=== PATIENT | female | born 1940 | race Two or more races ===

== ENCOUNTER 2023-09-23 22:02 | Emergency (ER) | payer OTHER, SELFPAY ==
[2023-09-23 22:27] VITALS: BP 179/64; PULSE 63; RESP 18; TEMP 36.1; O2SAT 98; BMI 23.0
--- NOTE | 2023-09-23 22:34 | CRLHL7_ITS ---
For Patients: As a result of the Century Cures Act, medical imaging exams and procedure reports are released immediately into your electronic medical record. You may view this report before your referring provider. If you have questions, please contact your health care provider. INDICATION: Cervical spine injury from fall TECHNIQUE: CT cervical spine without i.v. contrast. Coronal and sagittal reformats were obtained. COMPARISON: None FINDINGS: Alignment: Straightening of the spine is noted. Bone: No acute fractures or aggressive bone lesions are identified. Disc: There are degenerative disc disease noted at C5-6 and C6-7. Scattered facet osteoarthritis is noted bilaterally. Soft tissue: The prevertebral soft tissues are unremarkable in appearance. The visualized lung apices and mediastinum are unremarkable. Bilateral calcified carotid plaques are noted. IMPRESSION: 1. No acute osseous injuries are identified. Please note that all CT scans at this facility use dose modulation, iterative reconstruction, and/or weight-based dosing when appropriate to reduce radiation dose to as low as reasonably achievable. Dictated by: Dejon Bhatt MD @ 09/23/2023 23:12:55 (Electronically Signed)
--- NOTE | 2023-09-23 22:34 | CRLHL7_ITS ---
For Patients: As a result of the Century Cures Act, medical imaging exams and procedure reports are released immediately into your electronic medical record. You may view this report before your referring provider. If you have questions, please contact your health care provider. INDICATION: Head injury from fall TECHNIQUE: CT Head without i.v. contrast. Coronal and sagittal reformats were obtained. COMPARISON: None FINDINGS: CSF space: Unremarkable for age. Brain: No evidence of mass, acute infarction or hemorrhage is seen. No mass-effect or midline shift is seen. Mild diffuse cortical atrophy is noted. The brain parenchyma is otherwise normal in appearance with preservation of the muñoz-white matter junction. Calvarium: The visualized paranasal sinuses are well aerated. The mastoid air cells are clear. The visualized orbits are grossly unremarkable. The calvarium is unremarkable in appearance with no fractures identified. A small right frontal scalp hematoma is noted. IMPRESSION: 1. No evidence of acute infarction, intracranial hemorrhage, or mass-effect seen. Dictated by Dejon Bhatt MD @ 09/23/2023 11:09:42 PM Please note that all CT scans at this facility use dose modulation, iterative reconstruction, and/or weight-based dosing when appropriate to reduce radiation dose to as low as reasonably achievable. Dictated by: Dejon Bhatt MD @ 09/23/2023 23:09:45 (Electronically Signed)
--- NOTE | 2023-09-23 22:45 | ED.WOUNDLAC ---
HPI - Wound/Laceration General Chief Complaint: Laceration/Wound Stated Complaint: fell, face lac Time Seen by Provider: 09/23/23 22:29 History of Present Illness HPI narrative: Patient is a 83-year-old woman who 1 out for a smoke tonight and stumbled over the sidewalk. Patient fell face 1st striking her forehead and nose. The fall was witnessed. She did not lose consciousness and was able to get up on her own. She has abrasions on her forehead upper lip and nose. She has no lacerations. She has been neurologically intact since the accident but is brought in by her family to make sure that been no damage to her head and neck. She does appear to be up-to-date on her tetanus shot. Patient has no other major complaints such as headache other than in the contused areas as well as irritation from the abrasions. No neck pain no chest pain no shortness of breath or palpitations. Related Data Home Medications Medication Instructions Recorded Confirmed aspirin 81 mg tablet,delayed 81 mg PO DAILY 09/23/23 09/23/23 release glipizide 10 mg tablet 10 mg PO DAILY 09/23/23 09/23/23 lisinopril 2.5 mg tablet 2.5 mg PO DAILY 09/23/23 09/23/23 metformin 500 mg tablet 500 mg PO BID 09/23/23 09/23/23 omeprazole 40 mg capsule,delayed 40 mg PO DAILY 09/23/23 09/23/23 release Allergies Allergy/AdvReac Type Severity Reaction Status Date / Time No Known Drug Allergies Allergy Verified 09/23/23 22:19 Review of Systems Status of ROS: Reports: 10 or more systems reviewed and unremarkable except as noted in History and below [facility] Social History Smoking Status: Current every day smoker How often do you have a drink containing alcohol: never AUDIT-C Alcohol total score: 0 Non-prescribed substance use: denies use Exam Narrative: Exam Narrative: EXAM GENERAL: Patient appears comfortable and well. EYES: No scleral icterus. ENT: Tympanic membranes and oropharynx normal. THYROID: no thyroid nodules or thyromegaly. LYMPH: No supraclavicular or cervical lymphadenopathy. SKIN: Mild abrasions noted on the forehead nose and upper lip. No other significant findings. EXT: No dependent lower extremity pedal edema. HEART: Regular rate and rhythm with no murmurs, rubs, or gallops. LUNGS: Clear to auscultation bilaterally with no crackles or wheezes. ABD: Soft, non tender, non distended. PSYCH: Good eye contact, speech is not pressured. Neurologic cranial nerves 2-12 grossly intact no focal defects. Const: Vital Signs, click to edit/add: Vital Signs - 24 hr 09/23/23 22:27 Temperature 97.0 F L Pulse Rate [Pulse Oximeter] 63 Respiratory Rate 18 Blood Pressure [Ri ght Upper Arm] 179/64 H Pulse Oximetry 98 Oxygen Delivery Me thod Room Air Course Course ED Course: Patient seen examined. The wounds have been cleaned and bacitracin has been applied by family. CT of the head and neck pending. Vital Signs Vital signs: Initial Vital Signs Temperature 97.0 F L 09/23/23 22:27 Temperature Source Temporal Artery Scan 09/23/23 22:27 Pulse Rate 63 09/23/23 22:27 Pulse Rhythm Regular 09/23/23 22:27 Respiratory Rate 18 09/23/23 22:27 Blood Pressure 179/64 H 09/23/23 22:27 Blood Pressure Mean 102 09/23/23 22:27 Blood Pressure Position Sitting 09/23/23 22:27 Pulse Oximetry 98 09/23/23 22:27 Oxygen Delivery Method Room Air 09/23/23 22:27 Vital Signs Temperature 97.0 F L 09/23/23 22:27 Pulse Rate 63 09/23/23 22:27 Respiratory Rate 18 09/23/23 22:27 Blood Pressure 179/64 H 09/23/23 22:27 Pulse Oximetry 98 09/23/23 22:27 Oxygen Delivery Method Room Air 09/23/23 22:27 Temperature 97.0 F L 09/23/23 22:27 Pulse Rate 63 09/23/23 22:27 Respiratory Rate 18 09/23/23 22:27 Blood Pressure 179/64 H 09/23/23 22:27 Pulse Oximetry 98 09/23/23 22:27 Oxygen Delivery Method Room Air 09/23/23 22:27 MDM - Wound/Laceration MDM Narrative Medical decision making narrative: Patient presents after falling at home. She hit her head and has some minor abrasions had been treated. Tetanus shot appears to be up-to-date. CT of the head and neck were both negative for acute findings. Patient has a normal neurologic exam. At this time will continue symptomatic treatment of her abrasions and discharged home with close outpatient follow-up. Differential Diagnosis Differential diagnosis: Likely laceration, abscess, abrasion and avulsion of skin Discharge Plan Discharge Clinical Impression: Abrasion Patient Disposition: Home, Self-Care Condition: Stable Instructions: Abrasion (ED) Additional Instructions: Daily dressing changes Continue current medications Follow-up with your doctor as needed Activity Level: No Restrictions Discharge Diet: Regular Prescriptions: No Action metformin 500 mg tablet 500 mg PO BID glipizide 10 mg tablet 10 mg PO DAILY omeprazole 40 mg capsule,delayed release(DR/EC) 40 mg PO DAILY aspirin 81 mg tablet,delayed release (DR/EC) 81 mg PO DAILY lisinopril 2.5 mg tablet 2.5 mg PO DAILY Stand Alone Forms: [employer] Info Instructions
== END 2023-09-24 00:24 | disposition home or self-care (01) ==
LOC: ED 09-24 00:16
PROVIDERS: Emergency Provider Internal Medicine
DX: S00.31XA Abrasion of nose, initial encounter (principal); S00.511A Abrasion of lip, initial encounter; W01.0XXA Fall on same level from slipping, tripping and stumbling without subsequent striking against object, initial encounter
CPT/HCPCS: 70450; 72125; 99283

== ENCOUNTER 2023-09-29 15:38 | Emergency (ER) | payer OTHER, SELFPAY ==
[2023-09-29] VITALS (12 sets, daily range): BP systolic 138–172; BP diastolic 57–89; PULSE 51–59; RESP 20; TEMP 36.6; O2SAT 93–99
--- NOTE | 2023-09-29 16:16 | CRLHL7_ITS ---
For Patients: As a result of the Century Cures Act, medical imaging exams and procedure reports are released immediately into your electronic medical record. You may view this report before your referring provider. If you have questions, please contact your health care provider. INDICATION: Chest pain. Elevated D-dimer. Recent fall. TECHNIQUE: CT chest with 95 mL Isovue 370 IV contrast. COMPARISON: None. FINDINGS: Heart and vasculature: No cardiomegaly, no pericardial effusion. Within limitations of motion artifact, no filling defects identified within the main, lobar, and contrast opacified portions of the segmental pulmonary arteries. Atherosclerotic coronary artery calcifications. Lungs and pleura: No evidence of pulmonary infarct. Mosaic attenuation of the lung parenchyma, likely secondary to motion artifact. Thyroid and lower neck: No suspicious thyroid nodule. Mediastinum/seble: No lymphadenopathy. Chest wall: No axillary lymphadenopathy. Upper abdomen: No acute abnormality. Multiple right renal cysts noted. Bones: Multilevel degenerative changes of the spine. Bones are osteopenic. No acute displaced rib fracture identified. Age-indeterminate L1 compression fracture, with mild retropulsion. IMPRESSION: 1. No evidence of acute pulmonary embolus within limitations of motion artifact. 2. No evidence of pulmonary infarct. Mosaic attenuation of the lung parenchyma, likely secondary to motion artifact. 3. Age indeterminate L1 compression fracture, with mild retropulsion. Recommend correlation with point tenderness at this level, and with neurologic exam. Please note that all CT scans at this facility use dose modulation, iterative reconstruction, and/or weight-based dosing when appropriate to reduce radiation dose to as low as reasonably achievable. Dictated by Dru Raymond MD @ 09/29/2023 7:37:49 PM (Electronically Signed)
[2023-09-29] MEDS: MORPHINE 4 MG/ML INJ IVP (16:29)
--- NOTE | 2023-09-29 16:29 | ED_ITS ---
HPI - General Adult General Date Seen: 09/29/23 Chief complaint: Fall/Minor Trauma Stated complaint: fell, chest pain, from the clinic Time Seen by Provider: 09/29/23 16:06 Source: patient and family (Family acting as marine welder) Mode of arrival: ambulatory History of Present Illness HPI narrative: Patient is a 83-year-old female presenting to the emergency department for chest pain and elevated D-dimer. She was seen in this ED walk 1 week ago after a fall where she fell down some steps. She is fully evaluated and discharged home. Since then she has been having consistent midsternal chest pain has tender to palpation and worse when he takes a deep breath. States the pain is has only been going on since the fall. She went to go see clinic for her pain and lab work was done showing a markedly elevated D-dimer and she was sent here for possible PE. She denies shortness of breath. Denies any other pain at this point. Main concern is the chest pain. Denies low lightheadedness or dizziness. Denies numbness, weakness, abdominal pain. No other concerns at this time. She did take pain medication home with minimal improvement in her symptoms Related Data Home Medications Medication Instructions Recorded Confirmed aspirin 81 mg tablet,delayed 81 mg PO DAILY 09/23/23 09/29/23 release glipizide 10 mg tablet 10 mg PO DAILY 09/23/23 09/29/23 lisinopril 2.5 mg tablet 2.5 mg PO DAILY 09/23/23 09/29/23 metformin 500 mg tablet 500 mg PO BID 09/23/23 09/29/23 omeprazole 40 mg capsule,delayed 40 mg PO DAILY 09/23/23 09/29/23 release Allergies Allergy/AdvReac Type Severity Reaction Status Date / Time No Known Drug Allergies Allergy Verified 09/29/23 17:56 Review of Systems Status of ROS: Reports: 10 or more systems reviewed and unremarkable except as noted in History and below PFSH PFS Social History Smoking Status: Current every day smoker What tobacco products do you use: cigarettes Do you use any of these nicotine containing products: None Second hand tobacco smoke exposure: No How often do you have a drink containing alcohol: never How often do you have six or more drinks on one occasion: Never AUDIT-C Alcohol total score: 0 Non-prescribed substance use: denies use service: No Exam Narrative: Exam Narrative: Const: Well-nourished, Well-developed, in mild distress Eyes: PERRL, no conjunctival injection, and symmetrical lids HENT: Bruising seen throughout face. Moist mucous membranes. Neck: Symmetric, trachea midline, No thyromegaly. CVS: RRR, No murmurs or gallops. Peripheral pulses 2+ and equal in all extremities RESP: Unlabored respiratory effort. Clear to auscultation bilaterally. GI: Nontender/Nondistended, No rebound or guarding. MSK:Extremities w/o deformity, Normal Active ROM, tenderness to palpation of chest Skin: Warm, Dry. No rashes or lesions. Neuro: Normal Muscle tone, No focal neurological deficits. Psych: Awake, Alert, & Oriented x3. Appropriate mood and affect. Const: Vital Signs, click to edit/add: Vital Signs - 24 hr 09/29/23 15:53 09/29/23 15:56 09/29/23 15:57 Temperature 97.8 F Pulse Rate 53 L 52 L Pulse Rate [Pulse Oximeter] 55 L Respiratory Rate 20 Blood Pressure 152/63 H Blood Pressure [Ri ght Upper Arm] 152/63 H Pulse Oximetry 94 94 95 Oxygen Delivery Me thod Room Air 09/29/23 16:00 09/29/23 16:32 09/29/23 16:33 Temperature Pulse Rate 55 L 53 L 59 L Pulse Rate [Pulse Oximeter] Respiratory Rate Blood Pressure 138/57 L Blood Pressure [Ri ght Upper Arm] Pulse Oximetry 93 97 98 Oxygen Delivery Me thod 09/29/23 17:00 09/29/23 17:02 09/29/23 17:30 Temperature Pulse Rate 51 L 52 L 55 L Pulse Rate [Pulse Oximeter] Respiratory Rate Blood Pressure 156/65 H Blood Pressure [Ri ght Upper Arm] Pulse Oximetry 97 94 96 Oxygen Delivery Me thod 09/29/23 17:32 09/29/23 18:00 09/29/23 18:02 Temperature Pulse Rate 55 L 53 L 57 L Pulse Rate [Pulse Oximeter] Respiratory Rate Blood Pressure 172/75 H 139/89 Blood Pressure [Ri ght Upper Arm] Pulse Oximetry 98 99 94 Oxygen Delivery Me thod Course Vital Signs Vital signs: Initial Vital Signs Temperature 97.8 F 12/07/23 15:53 Temperature Source Temporal Artery Scan 09/29/23 15:53 Pulse Rate 55 L 09/29/23 15:53 Respiratory Rate 20 09/29/23 15:53 Blood Pressure 152/63 H 09/29/23 15:53 Blood Pressure Mean 92 09/29/23 15:53 Blood Pressure Position Semi-Fowlers 09/29/23 15:53 Pulse Oximetry 94 09/29/23 15:53 Oxygen Delivery Method Room Air 09/29/23 15:53 Vital Signs Temperature 97.8 F 09/29/23 15:53 Pulse Rate 55 L 09/29/23 15:53 Respiratory Rate 20 09/29/23 15:53 Blood Pressure 152/63 H 09/29/23 15:53 Pulse Oximetry 94 09/29/23 15:53 Oxygen Delivery Method Room Air 09/29/23 15:53 Temperature 97.8 F 09/29/23 15:53 Pulse Rate 57 L 09/29/23 18:02 Respiratory Rate 20 09/29/23 15:53 Blood Pressure 139/89 09/29/23 18:02 Pulse Oximetry 94 09/29/23 18:02 Oxygen Delivery Method Room Air 09/29/23 15:53 Medications Administered Medications: Discontinued Medications Generic Name Dose Route Start Last Admin Trade Name Cheryl PRN Reason Stop Dose Admin Ketorolac Tromethamine 15 mg 09/29/23 17:56 09/29/23 18:00 Ketorolac 15 Mg/Ml Inj IVP 09/29/23 17:57 15 mg ONCE ONE Administration Morphine Sulfate 4 mg 09/29/23 16:16 09/29/23 16:29 Morphine 4 Mg/Ml Inj IVP 09/29/23 16:17 4 mg ONCE ONE Administration Medical Decision Making [facility] Narrative Medical decision making narrative: Patient is an 83-year-old female presenting emergency department for chest pain and elevated D-dimer. She states that when I palpate her sternal region that reproduces the pain exactly. This makes me think it is most likely a musculoskeletal injury versus a pulmonary embolism but with her elevated D-dimer will order CTA. Cbc was already done at urgent care and is not needed at this time. There is no concerning findings. Point of care troponin was done there so we will do a repeat troponin here I returned showing no concerning abnormalities. BMP ordered to check kidney function prior to CTA. She was given oxycodone for pain is feeling better after this. EKG does show a sinus bradycardia but she is asymptomatic from this at this time and does not need to be worked up further. Patient still having pain after the oxycodone Toradol was given. His symptoms are now greatly improved. CTA of the chest showed an age-indeterminate L1 compression fracture. I spoke to her and her daughter about this and they state that old and patient is not currently having any back pain. No signs of a blood clot. Troponin and BMP showed no concerning abnormalities. Patient is otherwise safe for discharge and I agree with this plan. Will be discharged home with Toradol, oxycodone, Zofran. The Zofran is in case oxycodone causes nausea. Patient has no history of gastric ulcers or stomach issues so I am comfortable giving her the Toradol prescription. This will all be prescribed through [facility]. Lab Data Labs: Lab Results 09/29/23 Range/Units 16:30 Sodium 134 L (135-149) mmol/L Potassium 4.8 (3.6-5.1) mmol/L Chloride 101 (96-114) mmol/L Carbon Dioxide 27 (20-32) mmol/L Anion Gap 6 L (7-15) mEq/L BUN 21 (7-30) mg/dL Creatinine 0.7 (0.5-1.5) mg/dL Estimated GFR 86 ml/min Glucose 283 H (60-115) mg/dL Calcium 9.4 (8.4-10.6) mg/dL Troponin I < 0.01 L (0.01-0.04) ng/mL Imaging Data Chest CTA: Radiologist's impression: 1. No evidence of acute pulmonary embolus within limitations of motion artifact. 2. No evidence of pulmonary infarct. Mosaic attenuation of the lung parenchyma, likely secondary to motion artifact. 3. Age indeterminate L1 compression fracture, with mild retropulsion. Recommend correlation with point tenderness at this level, and with neurologic exam. Please note that all CT scans at this facility use dose modulation, iterative reconstruction, and/or weight-based dosing when appropriate to reduce radiation dose to as low as reasonably achievable. Dictated by Dru Raymond MD @ 09/29/2023 7:37:49 PM ECG Data Attestation: I personally reviewed and interpreted this ECG as follows: Prior ECG tracings: not available for review Interpretation: Sinus bradycardia with a rate of 48 beats per minute, normal intervals, normal axis, no ST or T-wave abnormalities. Discharge Plan Discharge Clinical Impression: Anterior chest wall pain Patient Disposition: Home, Self-Care Condition: Stable Instructions: Chest Wall Pain (ED) Additional Instructions: Take Tylenol and the Toradol for your pain. If his symptoms persist you can use the oxycodone. Of note oxycodone can make you lightheaded and increase your fall risk so be careful when taking this. If needed you can start at a half dose Prescriptions: No Action metformin 500 mg tablet 500 mg PO BID glipizide 10 mg tablet 10 mg PO DAILY omeprazole 40 mg capsule,delayed release(DR/EC) 40 mg PO DAILY aspirin 81 mg tablet,delayed release (DR/EC) 81 mg PO DAILY lisinopril 2.5 mg tablet 2.5 mg PO DAILY Follow Up/Referrals: Provider,Not a Local [Primary Care Provider] - Stand Alone Forms: [email or web address] Info Instructions
[2023-09-29 17:06] LABS: Chloride* 101 mmol/L (96-114)
[2023-09-29 17:07] LABS: Potassium* 4.8 mmol/L (3.6-5.1); Sodium* 134 mmol/L (135-149)
[2023-09-29 17:09] LABS: Creatinine* 0.7 mg/dL (0.5-1.5); Estimated Glomerular Filt Rate 86 ml/min
[2023-09-29 17:10] LABS: Anion Gap 6 mEq/L (7-15); Blood Urea Nitrogen* 21 mg/dL (7-30); Calcium* 9.4 mg/dL (8.4-10.6); Carbon Dioxide* 27 mmol/L (20-32); Glucose* 283 mg/dL (60-115)
[2023-09-29 17:25] LABS: Troponin I* < 0.01 ng/mL (0.01-0.04)
[2023-09-29] MEDS: KETOROLAC 15 MG/ML inj IVP (18:00)
== END 2023-09-29 20:06 | disposition home or self-care (01) ==
PROVIDERS: Emergency Provider Student in an Organized Health Care Education/Training Program
DX: R07.9 Chest pain, unspecified (principal)
CPT/HCPCS: 36415; 71275; 80048; 84484; 93005; 96374; 96375; 99283; 99284; J1885; J2270; Q9967

== ENCOUNTER 2025-03-25 17:59 | Inpatient (IN) | payer OTHER, SELFPAY ==
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
[2025-03-25 18:51] VITALS: BP 130/80; PULSE 86; RESP 14; TEMP 36.7; O2SAT 95; BMI 22.3
--- NOTE | 2025-03-25 19:55 | CRLHL7_ITS ---
For Patients: As a result of the 21st Century Cures Act, medical imaging exams and procedure reports are released immediately into your electronic medical record. You may view this report before your referring provider. If you have questions, please contact your health care provider. INDICATION: sob hx of ovarian cancer. TECHNIQUE: CT chest, abdomen and pelvis acquired 80 cc Isovue 370 IV contrast. COMPARISON: None. FINDINGS: CHEST: Cardiovascular structures: Heart size is normal. Thoracic aorta and main pulmonary artery are normal in caliber. Mediastinum and seble: No lymphadenopathy by size criteria. Lungs and pleura: Small to moderate right and trace left pleural effusions with subjacent basilar consolidations, at least partially reflecting atelectasis. Respiratory motion artifact limits fine detail evaluation of the lung parenchyma. No evidence suspicious pulmonary nodules or infiltrates. Chest wall and axilla: No mass or adenopathy. Bones: No suspicious bone lesions. Unremarkable for age. ABDOMEN AND PELVIS: Multilevel mild motion artifact limiting fine detail evaluation. Liver: Ill-defined subcapsular hypodensity along the anterior aspect of hepatic segment 5 measuring approximately 1.7 cm (). Gallbladder and bile ducts: Unremarkable. Pancreas: Unremarkable. Spleen: Unremarkable. Adrenal glands: Unremarkable. Kidneys: Right renal cysts and other bilateral subcentimeter cortical hypodensities, too small to characterize. No hydroureteronephrosis or evident urolithiasis. GI tract: Small to moderate hiatal hernia with a patulous distal esophagus containing small volume fluid. Bowel is normal in caliber without evidence of obstruction. Vascular structures: Unremarkable for age. Lymph nodes: No evident lymphadenopathy by size criteria. Peritoneum/Retroperitoneum/Abdominal Wall: Extensive peritoneal hyperenhancing nodularity, most pronounced in the right subdiaphragmatic region (for example, 15). There is also enhancing nodularity along the hepatic falciform ligament, also compatible with peritoneal implants. Large volume ascites. No free air. Pelvic Organs: Extensive irregularity of the adnexae with a large left adnexal cystic mass with an anterior wall that is poorly visualized, but measures approximately 9.5 cm (). Thickened endometrium measuring approximate 1.1 cm () Bones and superficial soft tissues: Chronic appearing compression deformity of the L1 vertebral body with approximately 50 percent height loss centrally. No suspicious bone lesions. Unremarkable for age. IMPRESSION: 1. Findings compatible with the reported history of ovarian cancer, including a left adnexal cystic mass that measures approximately 9.5 cm. 2. Extensive peritoneal carcinomatosis with large volume ascites, likely also malignant. 3. Small to moderate right and trace left pleural effusions with subjacent basilar consolidations, at least partially reflecting atelectasis. No definite suspicious pleural nodularity or enhancement to indicate pleural carcinomatosis. 4. Ill-defined subcapsular hypodensity along the anterior aspect of hepatic segment 5 measuring approximately 1.7 cm, nonspecific, though could reflect a metastasis. 5. Small to moderate hiatal hernia with a patulous distal esophagus containing small volume fluid, placing the patient at risk for aspiration. Please note that all CT scans at this facility use dose modulation, iterative reconstruction, and/or weight-based dosing when appropriate to reduce radiation dose to as low as reasonably achievable. Dictated by Minesh Gutierrez MD @ 03/25/2025 10:30:00 PM (Electronically Signed)
--- NOTE | 2025-03-25 19:59 | CRLHL7_ITS ---
For Patients: As a result of the Century Cures Act, medical imaging exams and procedure reports are released immediately into your electronic medical record. You may view this report before your referring provider. If you have questions, please contact your health care provider. INDICATION: Right lower extremity swelling. TECHNIQUE: Right lower extremity Doppler venous ultrasound examination was performed. Grayscale and color Doppler images were obtained. Spectral analysis was performed. COMPARISON: None. FINDINGS: RIGHT LOWER EXTREMITY: Common femoral vein: Fully compressible. No deep vein thrombus. Normal flow and response to augmentation on color Doppler imaging. Superficial femoral vein: Fully compressible. No deep vein thrombus. Normal flow on color Doppler imaging. Deep femoral vein: No deep vein thrombus Popliteal vein: Fully compressible. No deep vein thrombus. Normal flow on color Doppler imaging. Lower calf: The visualized posterior tibial and peroneal veins are fully compressible. No deep vein thrombus. Normal flow and response to augmentation on color Doppler imaging. Superficial veins: The superficial veins, including the greater saphenous vein, remain patent and are fully compressible. Soft tissues: No popliteal fossa fluid collection identified. LEFT LOWER EXTREMITY: Common femoral vein: Fully compressible. No deep vein thrombus. Normal flow and response to augmentation on color Doppler imaging. IMPRESSION: No deep vein thrombus within the right lower extremity Dictated by Paulino Clalahan MD @ 03/25/2025 9:47:27 PM (Electronically Signed)
--- NOTE | 2025-03-25 20:31 | ED.GENADULT ---
HPI - General Adult General Chief complaint: Nausea/Vomiting Stated complaint: Pain and not keeping down fluids, swollen R foot. Time Seen by Provider: 03/25/25 19:00 Source: family History of Present Illness HPI narrative: 85-year-old female coming in today with her family concerned about vomiting. Patient was diagnosed with ovarian cancer with carcinomatosis in January while she was in [place], has had no follow-up since. In the last week she has been vomiting daily. She was seen in the emergency department in [place] this last Tuesday was given IV fluids per her family and sent home to have outpatient follow-up, again this was not done. She was hospitalized the last week of February while in [place] within she had an abdominal CT done showing significant ascites. Paracentesis was done at that time. A repeat paracentesis was recommended prior to discharge and this was not done. In the last 2 days vomiting has returned. Patient complained of abdominal pain. She flew home yesterday with her family who wanted her to have her care here instead of [place]. She states that every now and then she has chest pressure. She was supposed to have cardiology follow-up and this was never established either. Patient has been vomiting up all her medications for the last week. She did have a dose of insulin last night. Family has been checking her sugars regularly. Related Data Home Medications ?Medication ?Instructions ?Recorded ?Confirmed aspirin 81 mg tablet,delayed 81 mg PO DAILY 09/23/23 03/25/25 release glipizide 10 mg tablet 10 mg PO DAILY 09/23/23 03/25/25 lisinopril 2.5 mg tablet 2.5 mg PO DAILY 09/23/23 03/25/25 Held on 03/25/25. Instructions: on hold metformin 500 mg tablet 1,000 mg PO BID 09/23/23 03/25/25 omeprazole 40 mg capsule,delayed 40 mg PO DAILY 09/23/23 09/29/23 release hydrochlorothiazide 25 mg tablet 25 mg PO DAILY 03/25/25 03/25/25 losartan 25 mg tablet (Cozaar) 25 mg PO DAILY 03/25/25 03/25/25 metoprolol succinate 25 mg 25 mg PO DAILY 03/25/25 03/25/25 tablet,extended release 24 hr nifedipine 30 mg tablet,extended 30 mg PO DAILY 03/25/25 03/25/25 release pantoprazole 40 mg tablet,delayed 40 mg PO DAILY 03/25/25 03/25/25 release promethazine 25 mg tablet 25 mg PO Q12H PRN 03/25/25 03/25/25 Previous Rx's ?Medication ?Instructions ?Recorded ketorolac 10 mg tablet 10 mg PO TID PRN pain 5 days #15 09/29/23 tabs ondansetron 4 mg disintegrating 4 mg PO Q6H #20 tabs 09/29/23 tablet oxycodone 5 mg tablet 5 mg PO Q6H PRN pain #12 tabs 09/29/23 Allergies Allergy/AdvReac Type Severity Reaction Status Date / Time No Known Drug Allergies Allergy Verified 03/25/25 18:42 Review of Systems Status of ROS: Reports: 10 or more systems reviewed and unremarkable except as noted in History and below [facility] Medical History (Updated 03/25/25 @ 23:22 by Lyssa Palm MD) Diabetic neuropathy ?E11.40 - Type 2 diabetes mellitus with diabetic neuropathy, unspecified (ICD-10) Hyperlipidemia ?E78.5 - Hyperlipidemia, unspecified (ICD-10) Chronic back pain ?M54.9 - Dorsalgia, unspecified (ICD-10) ?G89.29 - Other chronic pain (ICD-10) Poorly controlled type 2 diabetes mellitus ?E11.65 - Type 2 diabetes mellitus with hyperglycemia (ICD-10) Surgical History (Updated 03/25/25 @ 22:50 by Divya Rodriguez MD) History of lumbar fusion ?Z98.1 - Arthrodesis status (ICD-10) History of partial hysterectomy ?Z90.711 - Acquired absence of uterus with remaining cervical stump (ICD-10) Social History Smoking Status: Current every day smoker What tobacco products do you use: cigarettes Do you use any of these nicotine containing products: None Second hand tobacco smoke exposure: No How often do you have a drink containing alcohol: never How often do you have six or more drinks on one occasion: Never AUDIT-C Alcohol total score: 0 Non-prescribed substance use: denies use service: No Exam Narrative: Exam Narrative: Thin, frail elderly patient in no acute distress, lying quietly in bed with her eyes closed. She follows all commands in [place] from her family. Patient breathing without difficulty. HEENT: Normocephalic atraumatic. Neck is soft. Cardiovascular: Heart is regular rate and rhythm S1 and S2 are present without any murmurs. Lungs: End-expiratory crackles bilaterally. Abdomen: Firm and significantly distended with normoactive bowel sounds. Extremities: Right lower extremity shows 1+ pitting edema, left lower extremity appears normal. Skin: Well perfused without any obvious rashes. Const: Vital Signs, click to edit/add: Vital Signs - 24 hr 03/25/25 18:51 Temperature 98.1 F Pulse Rate [Pulse Oximeter] 86 Respiratory Rate 14 Blood Pressure [Ri t Upper Arm] 130/80 Pulse Oximetry 95 Oxygen Delivery Me thod Room Air Course Course ED Course: IV established and patient given 500 mL of normal saline and IV Zofran. EKG, read by me, shows normal sinus rhythm, pulse 76. Blood work is drawn: WBC is elevated at 12.9, hemoglobin low at 10.1, hematocrit 30.8. Platelet count 595. INR is 1. Sodium is low at 131. Chemistries are otherwise unremarkable. Lactate is normal at 1.3. Normal magnesium. Normal LFTs. Normal troponin. CRP mildly elevated at 4.2. BNP 205. Total protein and albumin within normal range. Normal procalcitonin. Right lower extremity ultrasound does not show any DVT. Chest CT shows a small to moderate right and trace left pleural effusions with subjacent basilar consolidations. Abdomen pelvis CT shows no evidence of obstruction. Does show extensive peritoneal hyper enhancing nodularity compatible with peritoneal implants him large volume ascites. Patient has a large left adnexal cystic mass. Findings are compatible with ovarian cancer, peritoneal carcinomatosis with large volume ascites. Patient also has a small volume flu the distal esophagus. Patient will likely need paracentesis. Discussed patient with Dr. Rodriguez who is accepting the patient for admission further management at this time. Vital Signs Vital signs: Initial Vital Signs Temperature 98.1 F 03/25/25 18:51 Temperature Source Temporal Artery Scan 03/25/25 18:51 Pulse Rate 86 03/25/25 18:51 Pulse Rhythm Regular 03/25/25 18:51 Respiratory Rate 14 03/25/25 18:51 Blood Pressure 130/80 03/25/25 18:51 Blood Pressure Mean 96 03/25/25 18:51 Blood Pressure Position Sitting 03/25/25 18:51 Pulse Oximetry 95 03/25/25 18:51 Oxygen Delivery Method Room Air 03/25/25 18:51 Vital Signs Temperature 98.1 F 03/25/25 18:51 Pulse Rate 86 03/25/25 18:51 Respiratory Rate 14 03/25/25 18:51 Blood Pressure 130/80 03/25/25 18:51 Pulse Oximetry 95 03/25/25 18:51 Oxygen Delivery Method Room Air 03/25/25 18:51 Temperature 98.1 F 03/25/25 18:51 Pulse Rate 86 03/25/25 18:51 Respiratory Rate 14 03/25/25 18:51 Blood Pressure 130/80 03/25/25 18:51 Pulse Oximetry 95 03/25/25 18:51 Oxygen Delivery Method Room Air 03/25/25 18:51 Medications Administered Medications: Discontinued Medications Generic Name Dose Route Start Last Admin Trade Name Freq PRN Reason Stop Dose Admin Sodium Chloride 500 mls @ 500 mls/hr 03/25/25 19:58 03/25/25 21:25 0.9 % Sodium Chloride 500 Ml IV 03/25/25 20:57 Infused .Q1H ONE Infusion Ondansetron HCl 4 mg 03/25/25 19:58 03/25/25 20:50 Ondansetron 2 Mg/Ml Inj IVP 03/25/25 19:59 4 mg ONCE ONE Administration Medical Decision Making MDM Narrative Medical decision making narrative: 85-year-old female with metastatic ovarian cancer and malignant ascites, hyponatremia. Vomiting for the last week. Patient will be admitted for further management. Lab Data Lab results reviewed: Yes I reviewed the patient's lab results Labs: Lab Results 03/25/25 Range/Units 20:48 WBC 12.93 H (4.50-11.00) K/uL RBC 3.73 L (4.00-5.20) m/uL Hgb 10.1 L (12.0-16.0) gm/dL Hct 30.8 L (33.0-51.0) % MCV 83 (80-100) fL MCH 27 (26-34) pg MCHC 33 (32-36) gm/dL RDW Coeff of Brenda 14.0 (11.5-15.5) % Plt Count 595 H (140-440) K/uL Neut % (Auto) 75.4 H (42.0-72.0) % Lymph % (Auto) 16.9 L (20-44) % Crisp % (Auto) 6.0 (0.0-11.0) % Eos % (Auto) 1.2 (0.0-7.0) % Baso % (Auto) 0.2 (0.0-3.0) % Neut # (Auto) 9.70 H (1.7-7.0) K/uL Lymph # (Auto) 2.20 (0.90-2.90) K/uL Crisp # (Auto) 0.80 (0.00-0.90) K/UL Eos # (Auto) 0.20 (0.00-0.50) K/uL Baso # (Auto) 0.00 (0.00-0.30) K/uL Abs Immat Gran (auto) 0.00 (0.00-0.30) K/uL Imm/Tot Granulo (auto) 0.3 % INR 1.00 (0.91-1.10) Sodium 131 L (135-149) mmol/L Potassium 4.1 (3.6-5.1) mmol/L Chloride 97 (96-114) mmol/L Carbon Dioxide 28 (20-32) mmol/L Anion Gap 6 L (7-15) mEq/L BUN 17 (7-30) mg/dL Creatinine 0.8 (0.5-1.5) mg/dL Estimated Creat Clear 30.08 Estimated GFR 73 ml/min Glucose 139 H (60-115) mg/dL Lactate 1.3 (0.5-1.9) mmol/L Calcium 8.9 (8.4-10.6) mg/dL Magnesium 2.0 (1.5-2.6) mg/dL Total Bilirubin 0.3 (0.1-1.5) mg/dL Direct Bilirubin 0.3 (0.0-0.5) mg/dL AST 30 (12-35) U/L ALT 12 (4-35) U/L Alkaline Phosphatase 76 (40-150) U/L Troponin I < 0.01 (0.01-0.04) ng/mL C-Reactive Protein 4.2 H (0.5-1.0) mg/dL NT-Pro-B Natriuret Pep 205 (See Note) pg/mL Total Protein 6.8 (6.0-8.3) g/dL Albumin 3.3 (3.3-5.0) g/dL Lipase 36 (23-300) U/L Procalcitonin 0.06 (<0.50) ng/mL Imaging Data CT Chest/Ab/Pelvis: Attestation: I have reviewed the pertinent imaging results. Radiologist's impression: TECHNIQUE: CT chest, abdomen and pelvis acquired 80 cc Isovue 370 IV contrast. COMPARISON: None. FINDINGS: CHEST: Cardiovascular structures: Heart size is normal. Thoracic aorta and main pulmonary artery are normal in caliber. Mediastinum and seble: No lymphadenopathy by size criteria. Lungs and pleura: Small to moderate right and trace left pleural effusions with subjacent basilar consolidations, at least partially reflecting atelectasis. Respiratory motion artifact limits fine detail evaluation of the lung parenchyma. No evidence suspicious pulmonary nodules or infiltrates. Chest wall and axilla: No mass or adenopathy. Bones: No suspicious bone lesions. Unremarkable for age. ABDOMEN AND PELVIS: Multilevel mild motion artifact limiting fine detail evaluation. Liver: Ill-defined subcapsular hypodensity along the anterior aspect of hepatic segment 5 measuring approximately 1.7 cm (/51). Gallbladder and bile ducts: Unremarkable. Pancreas: Unremarkable. Spleen: Unremarkable. Adrenal glands: Unremarkable. Kidneys: Right renal cysts and other bilateral subcentimeter cortical hypodensities, too small to characterize. No hydroureteronephrosis or evident urolithiasis. GI tract: Small to moderate hiatal hernia with a patulous distal esophagus containing small volume fluid. Bowel is normal in caliber without evidence of obstruction. Vascular structures: Unremarkable for age. Lymph nodes: No evident lymphadenopathy by size criteria. Peritoneum/Retroperitoneum/Abdominal Wall: Extensive peritoneal hyperenhancing nodularity, most pronounced in the right subdiaphragmatic region (for example, 11/15). There is also enhancing nodularity along the hepatic falciform ligament, also compatible with peritoneal implants. Large volume ascites. No free air. Pelvic Organs: Extensive irregularity of the adnexae with a large left adnexal cystic mass with an anterior wall that is poorly visualized, but measures approximately 9.5 cm (11/117). Thickened endometrium measuring approximate 1.1 cm (13/71) Bones and superficial soft tissues: Chronic appearing compression deformity of the L1 vertebral body with approximately 50 percent height loss centrally. No suspicious bone lesions. Unremarkable for age. IMPRESSION: 1. Findings compatible with the reported history of ovarian cancer, including a left adnexal cystic mass that measures approximately 9.5 cm. 2. Extensive peritoneal carcinomatosis with large volume ascites, likely also malignant. 3. Small to moderate right and trace left pleural effusions with subjacent basilar consolidations, at least partially reflecting atelectasis. No definite suspicious pleural nodularity or enhancement to indicate pleural carcinomatosis. 4. Ill-defined subcapsular hypodensity along the anterior aspect of hepatic segment 5 measuring approximately 1.7 cm, nonspecific, though could reflect a metastasis. 5. Small to moderate hiatal hernia with a patulous distal esophagus containing small volume fluid, placing the patient at risk for aspiration. Venous US: Attestation: I have reviewed the pertinent imaging results. Radiologist's impression: TECHNIQUE: Right lower extremity Doppler venous ultrasound examination was performed. Grayscale and color Doppler images were obtained. Spectral analysis was performed. COMPARISON: None. FINDINGS: RIGHT LOWER EXTREMITY: Common femoral vein: Fully compressible. No deep vein thrombus. Normal flow and response to augmentation on color Doppler imaging. Superficial femoral vein: Fully compressible. No deep vein thrombus. Normal flow on color Doppler imaging. Deep femoral vein: No deep vein thrombus Popliteal vein: Fully compressible. No deep vein thrombus. Normal flow on color Doppler imaging. Lower calf: The visualized posterior tibial and peroneal veins are fully compressible. No deep vein thrombus. Normal flow and response to augmentation on color Doppler imaging. Superficial veins: The superficial veins, including the greater saphenous vein, remain patent and are fully compressible. Soft tissues: No popliteal fossa fluid collection identified. LEFT LOWER EXTREMITY: Common femoral vein: Fully compressible. No deep vein thrombus. Normal flow and response to augmentation on color Doppler imaging. IMPRESSION: No deep vein thrombus within the right lower extremity ECG Data Attestation: I personally reviewed and interpreted this ECG as follows: Discharge Plan Discharge Clinical Impression: Primary cancer of ovary with widespread metastatic disease, Malignant ascites, Hyponatremia, Vomiting Patient Disposition: Admitted As Observation Condition: Stable
[2025-03-25] MEDS: ONDANSETRON 2 MG/ML inj 4 MG IVP (20:50)
[2025-03-25] MEDS: 0.9 % SODIUM CHLORIDE 500 ML 500 ML IV (20:50)
[2025-03-25 20:51] LABS: Lactate* 1.3 mmol/L (0.5-1.9)
[2025-03-25 20:56] LABS: Basophils Percent Auto 0.2 % (0.0-3.0); Eosinophils Percent Auto 1.2 % (0.0-7.0); Hematocrit 30.8 % (33.0-51.0); Hemoglobin* 10.1 gm/dL (12.0-16.0); Immature Granulocytes Pct Auto 0.3 %; Lymphocytes Percent Auto 16.9 % (20-44); Mean Corpuscular HGB Conc 33 gm/dL (32-36); Mean Corpuscular Hemoglobin 27 pg (26-34); Mean Corpuscular Volume 83 fL (80-100); Neutrophils Percent Auto 75.4 % (42.0-72.0); Platelet Count* 595 K/uL (140-440); Red Blood Count 3.73 m/uL (4.00-5.20); White Blood Count* 12.93 K/uL (4.50-11.00)
[2025-03-25 21:02] LABS: Slide Review Reflex No
[2025-03-25 21:17] LABS: Albumin* 3.3 g/dL (3.3-5.0); Chloride* 97 mmol/L (96-114); Sodium* 131 mmol/L (135-149)
[2025-03-25 21:18] LABS: Potassium* 4.1 mmol/L (3.6-5.1)
[2025-03-25 21:20] LABS: Alanine Aminotransferase* 12 U/L (4-35); Alkaline Phosphatase* 76 U/L (40-150); Anion Gap 6 mEq/L (7-15); Aspartate Amino Transferase* 30 U/L (12-35); Bilirubin Direct* 0.3 mg/dL (0.0-0.5); Bilirubin Total* 0.3 mg/dL (0.1-1.5); Blood Urea Nitrogen* 17 mg/dL (7-30); Carbon Dioxide* 28 mmol/L (20-32); Creatinine* 0.8 mg/dL (0.5-1.5); Est. Creatinine Clearance* 30.08; Estimated Glomerular Filt Rate 73 ml/min; Lipase* 36 U/L (23-300); Total Protein* 6.8 g/dL (6.0-8.3)
[2025-03-25 21:21] LABS: Calcium* 8.9 mg/dL (8.4-10.6); Glucose* 139 mg/dL (60-115)
[2025-03-25 21:23] LABS: C Reactive Protein* 4.2 mg/dL (0.5-1.0)
[2025-03-25 21:33] LABS: NT Pro B Type NatriureticPept* 205 pg/mL (See Note); Troponin I* < 0.01 ng/mL (0.01-0.04)
[2025-03-25 21:35] LABS: Procalcitonin* 0.06 ng/mL (<0.50)
--- NOTE | 2025-03-25 22:40 | PM.IMHP1 ---
Assessment and Plan Assessment and plan (1) Primary cancer of ovary with widespread metastatic disease: Problem comment: -diagnosed in January of 2024. There were 3 CT guided biopsies taken and sent to pathology. those results are not available upon review of the patient's Epic MyChart. Has not yet met with Oncology. Apparently there has been a biopsy which the family is gathering records. There has been no paracentesis. -patient wishes to be full code and have full evaluation by Oncology to know all of her options and prognosis. Status: Acute (2) Peritoneal carcinomatosis: Problem comment: -likely inducing her vomiting and poor intake -will run IV fluids, medications use NG tube and perform diagnostic and therapeutic paracentesis -we will do our best to connect her to GynOnc Status: Acute (3) Malignant ascites: Problem comment: -as above Status: Acute (4) Poorly controlled type 2 diabetes mellitus: Problem comment: -A1c pending. Blood sugars Q 4. Sliding scale insulin. Status: Acute (5) Hyponatremia: Problem comment: Noted, following Status: Acute (6) Diabetic neuropathy: Problem comment: Chronic Status: Acute (7) Chronic back pain: Problem comment: Noted Status: Acute (8) Nausea & vomiting: Problem comment: NPO with ice chips. NG if needed Zofran, Reglan, Olanzapine ordered paracentesis may help Status: Acute Hospitalist- H&P: HPI History of Present Illness Date Seen: 03/25/25 Chief complaint: Pain and not keeping down fluids, swollen R foot. Narrative: ADMISSION HISTORY AND PHYSICAL - HOSPITALIST Chief Complaint: known cancer, recurrent vomiting HPI: 85-year-old , Khmer only speaking, with a history of poorly controlled type 2 diabetes, insulin dependent and with neuropathy presents with her family with unrelenting recurrent vomiting. Patient just flew here from [place]. The family states that she was diagnosed with widespread metastatic ovarian cancer sometime earlier this year. However, there was a lack of follow-up and the family was feeling helpless in getting her to the right appointments. She then ended up in the ER in [place] last week with vomiting. She was not admitted. And then they flew her here to [place] where her family lives. ER COURSE: Labs, CT abdomen pelvis, venous Doppler of the right leg. bolus, zofran. CODE STATUS: TBD PCP: N/A EMERGENCY CONTACT PLAN: Leda Peña Rel To Pat Granddaughter Cell I've updated the PFSH, medications and allergies in the Expanse tabs. INVESTIGATIONS: LABS/MICRO/ECG/IMAGING Vitals reviewed and stable. Afebrile. Blood pressure 130/80. Pulse 86. Respiratory rate 14. Pulse ox 95% on room air. CBC reflects a mild leukocytosis of 12.93. 75% neutrophils. Mild anemia at hemoglobin of 10.1, MCV 83. Platelets 595 INR normal at 1.0 Mild hyponatremia at 131 Other electrolytes and renal function are normal. Creatinine clearance 30. BMI 22.3 Glucose 139 Normal lactate, normal magnesium. Normal LFTs, normal troponin. CRP 4.2 Lipase is 36 DVT study negative in the right lower extremity CT chest abdomen pelvis 1. Findings compatible with the reported history of ovarian cancer, including a left adnexal cystic mass that measures approximately 9.5 cm. 2. Extensive peritoneal carcinomatosis with large volume ascites, likely also malignant. 3. Small to moderate right and trace left pleural effusions with subjacent basilar consolidations, at least partially reflecting atelectasis. No definite suspicious pleural nodularity or enhancement to indicate pleural carcinomatosis. 4. Ill-defined subcapsular hypodensity along the anterior aspect of hepatic segment 5 measuring approximately 1.7 cm, nonspecific, though could reflect a metastasis. 5. Small to moderate hiatal hernia with a patulous distal esophagus containing small volume fluid, placing the patient at risk for aspiration. REVIEW OF SYSTEMS: 12-point ROS completed with patient and negative unless otherwise stated in HPI or below. PHYSICAL EXAM: CONSTITUTIONAL: Alert, cachectic. She speaks her mind. She really does not look at me so much is her daughter/granddaughter. GENERAL: Small frame, less than ideal body weight, in no respiratory distress. VITAL SIGNS: see record. HEENT: Sclerae are anicteric. No petechiae. CARDIAC: rhythm is regular. There is no S3 or rub. No harsh murmurs. Extremities show trace edema with symmetrical pulses. PULM: good air entry with no wheeze. ABDOMEN: distended; protuberant. Distant bowel sounds. NEURO: Speech is fluent. A brief neurologic exam is negative. SKIN: No rashes, petechiae, concerning changes PSYCHIATRIC: Euthymic. ADMIT TO MEDSURG: FLOOR CARE DVT: Lovenox GI: PO intake Time spent: Today I spent 75 minutes seeing the patient, discussing the patient with ER staff, reviewing Expanse and EPIC notes/diagnostics, discussing the care plan with our care time that includes social work, PT/OT, pharmacy, RT, jail and documenting my impressions and plan in the medical record. MEDICAL NECESSITY FOR HOSPITALIZATION Anticipated midnights in the hospital: Admitting diagnosis: Risk of morbidity and mortality: high Acuity is characterized as high and reflected in: This patient will require hospital services as outlined in the assessment and plan in order to stabilize and be safely discharged to a lower level of care. Because of the risk and acuity as described above, this patient cannot be managed at a lower level of care. LENGTH OF STAY: 2 IP ? Anticipated LOS>2 midnights due to acuity of clinical presentation requiring inpatient level of care [facility] Medical History (Updated 03/26/25 @ 00:41 by Divya Rodriguez MD) Diabetic neuropathy ?E11.40 - Type 2 diabetes mellitus with diabetic neuropathy, unspecified (ICD-10) Hyperlipidemia ?E78.5 - Hyperlipidemia, unspecified (ICD-10) Chronic back pain ?M54.9 - Dorsalgia, unspecified (ICD-10) ?G89.29 - Other chronic pain (ICD-10) Poorly controlled type 2 diabetes mellitus ?E11.65 - Type 2 diabetes mellitus with hyperglycemia (ICD-10) Surgical History (Updated 03/25/25 @ 22:50 by Divya Rodriguez MD) History of lumbar fusion ?Z98.1 - Arthrodesis status (ICD-10) History of partial hysterectomy ?Z90.711 - Acquired absence of uterus with remaining cervical stump (ICD-10) Social History Smoking Status: Current every day smoker What tobacco products do you use: cigarettes Do you use any of these nicotine containing products: None Second hand tobacco smoke exposure: No How often do you have a drink containing alcohol: never How often do you have six or more drinks on one occasion: Never AUDIT-C Alcohol total score: 0 Non-prescribed substance use: denies use service: No Meds Home Medications and Allergies Home Medications ?Medication ?Instructions ?Recorded ?Confirmed ?Type aspirin 81 mg tablet,delayed 81 mg PO DAILY 09/23/23 03/25/25 History release glipizide 10 mg tablet 10 mg PO DAILY 09/23/23 03/25/25 History lisinopril 2.5 mg tablet 2.5 mg PO DAILY 09/23/23 03/25/25 History Held on 03/25/25. Instructions: on hold metformin 500 mg tablet 1,000 mg PO BID 09/23/23 03/25/25 History omeprazole 40 mg capsule,delayed 40 mg PO DAILY 09/23/23 09/29/23 History release ketorolac 10 mg tablet 10 mg PO TID PRN pain 5 days #15 09/29/23 Rx tabs ondansetron 4 mg disintegrating 4 mg PO Q6H #20 tabs 09/29/23 03/25/25 Rx tablet oxycodone 5 mg tablet 5 mg PO Q6H PRN pain #12 tabs 09/29/23 Rx hydrochlorothiazide 25 mg tablet 25 mg PO DAILY 03/25/25 03/25/25 History losartan 25 mg tablet (Cozaar) 25 mg PO DAILY 03/25/25 03/25/25 History metoprolol succinate 25 mg 25 mg PO DAILY 03/25/25 03/25/25 History tablet,extended release 24 hr nifedipine 30 mg tablet,extended 30 mg PO DAILY 03/25/25 03/25/25 History release pantoprazole 40 mg tablet,delayed 40 mg PO DAILY 03/25/25 03/25/25 History release promethazine 25 mg tablet 25 mg PO Q12H PRN 03/25/25 03/25/25 History Allergies Allergy/AdvReac Type Severity Reaction Status Date / Time No Known Drug Allergies Allergy Verified 03/25/25 18:42 Exam Const: Vital Signs, click to edit/add: Vital Signs - 24 hr 03/25/25 18:51 Temperature 98.1 F Pulse Rate [Pulse Oximeter] 86 Respiratory Rate 14 Blood Pressure [Ri ght Upper Arm] 130/80 Pulse Oximetry 95 Oxygen Delivery Me thod Room Air Hospitalist - H&P: Result Labs Labs: Short CBC 03/25/25 Range/Units 20:48 WBC 12.93 H (4.50-11.00) K/uL Hgb 10.1 L (12.0-16.0) gm/dL Hct 30.8 L (33.0-51.0) % Plt Count 595 H (140-440) K/uL BMP 03/25/25 20:48 Sodium 131 L Potassium 4.1 Chloride 97 Carbon Dioxide 28 BUN 17 Creatinine 0.8 Glucose 139 H Calcium 8.9 Cardiac Enzymes 03/25/25 Range/Units 20:48 Troponin I < 0.01 (0.01-0.04) ng/mL Liver Function 03/25/25 Range/Units 20:48 Total Bilirubin 0.3 (0.1-1.5) mg/dL Direct Bilirubin 0.3 (0.0-0.5) mg/dL AST 30 (12-35) U/L ALT 12 (4-35) U/L Alkaline Phosphatase 76 (40-150) U/L Albumin 3.3 (3.3-5.0) g/dL
[2025-03-25 23:43] VITALS: PULSE 77
[2025-03-25 23:55] VITALS: BP 133/77; PULSE 79; RESP 16; TEMP 36.6; O2SAT 92; BMI 22.4
[2025-03-26] VITALS (9 sets, daily range): BP systolic 113–148; BP diastolic 59–76; PULSE 63–91; RESP 14–20; TEMP 36.3–37.2; O2SAT 90–98
[2025-03-26] MEDS: 0.9 % SODIUM CHLORIDE 1000 ml 1,000 ML 125 ML IV ×3 (00:39→16:41)
[2025-03-26] MEDS: ENOXAPARIN 40 MG/0.4 ML INJ SUBCUT ×2 (00:39→21:19)
[2025-03-26] MEDS: PANTOPRAZOLE SODIUM 40 MG INJ IVP (00:39)
[2025-03-26] MEDS: MORPHINE 4 MG/ML INJ 2 MG IVP (01:08)
--- NOTE | 2025-03-26 05:52 | PC.NURSE ---
Pt is alert and oriented x3. Pt declined pad making machine operator, preferring to use family members instead. Pt agreed to allow us to use the?pad making machine operator if no family members are present to interpret. Pt reports 4/10 chest/epigastric pain, MD Rodriguez updated, PRN morphine given with relief. Pt?s external buck catheter is patent and draining. Pt currently on bed rest but reports at home she uses walker, tolerating an NPO diet with ice chips. ?
[2025-03-26] MEDS: ONDANSETRON 2 MG/ML inj 4 MG IVP ×2 (09:47→18:15)
--- NOTE | 2025-03-26 09:59 | P.IMPN_ITS ---
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, favor high grade -patient wishes to be full code and have full evaluation by Oncology to know all of her options and prognosis; family in agreement -referrals sent to our local Oncology team (may be willing to follow medically) and [facility] Supervisor-Onc team on 03/26/25 Status: Acute (2) Nausea & vomiting: Problem comment: -likely 2/2 metastatic ovarian cancer + peritoneal carcinomatosis, no evidence of obstruction on 03/25/25 imaging -NPO on admission, significant symptom improvement 03/26/25 and tolerant of bland breakfast -symptomatic cares, paracentesis with General Surgery 03/26 -improving 03/26/25 Status: Acute (3) Poorly controlled type 2 diabetes mellitus: Problem comment: -A1c 8.0 on 03/25/25 (has previously been as high as 13) -BG 90s-100s, on SSI if needed Status: Acute (4) Hyponatremia: Problem comment: -Noted, mild (131-134), asymptomatic, continue to follow Status: Acute Plan - continue to advance diet, if stable on 03/27 will d/c home with family and close f/u - granddaughter updated bedside, questions answered Subjective Date Seen: 03/26/25 Interval history: Meagan John) was admitted last night for nausea and vomiting in the setting of known metastatic ovarian cancer. Today she is feeling better, had 3500mL removed during ultrasound guided paracentesis with General Surgery. Tolerant of bland breakfast, premedicated with Zofran. No significant pain, no other concerns today. Granddaughter at bedside during visit. Exam Narrative: Exam Narrative: GEN: Alert and oriented, frail, nontoxic HEENT: EOMIs bilaterally, no scleral icterus CV: Pulse palpates as RRR R: Breathing comfortably, no wheezing Ab: + ascites Ext: wwp, no concerning edema Neuro: Nonfocal Psych: Appropriate Const: Vital Signs, click to edit/add: Vital Signs - 24 hr 03/25/25 18:51 03/25/25 23:43 03/25/25 23:55 Temperature 98.1 F 97.8 F Pulse Rate 77 Pulse Rate [Pulse Oximeter] 86 79 Respiratory Rate 14 16 Blood Pressure [Le ft Arm] 133/77 Blood Pressure [Ri ght Upper Arm] 130/80 Pulse Oximetry 95 92 Oxygen Delivery Me thod Room Air Room Air 03/25/25 23:55 03/26/25 05:00 03/26/25 07:00 Temperature 97.4 F L 98.7 F Pulse Rate Pulse Rate [Pulse Oximeter] 68 75 Respiratory Rate 14 16 Blood Pressure [Le ft Arm] 119/71 123/76 Blood Pressure [Ri ght Upper Arm] Pulse Oximetry 90 95 Oxygen Delivery Me thod Room Air Room Air Room Air 03/26/25 08:09 Temperature Pulse Rate 70 Pulse Rate [Pulse Oximeter] Respiratory Rate Blood Pressure [Le ft Arm] Blood Pressure [Ri ght Upper Arm] Pulse Oximetry Oxygen Delivery Me thod Labs Labs: Laboratory Results - last 24 hr 03/25/25 03/25/25 20:48 23:43 WBC 12.93 H RBC 3.73 L Hgb 10.1 L Hct 30.8 L MCV 83 MCH 27 MCHC 33 RDW Coeff of Brenda 14.0 Plt Count 595 H Neut % (Auto) 75.4 H Lymph % (Auto) 16.9 L Charles % (Auto) 6.0 Eos % (Auto) 1.2 Baso % (Auto) 0.2 Neut # (Auto) 9.70 H Lymph # (Auto) 2.20 Charles # (Auto) 0.80 Eos # (Auto) 0.20 Baso # (Auto) 0.00 Abs Immat Gran (auto) 0.00 Imm/Tot Granulo (auto) 0.3 INR 1.00 Sodium 131 L Potassium 4.1 Chloride 97 Carbon Dioxide 28 Anion Gap 6 L BUN 17 Creatinine 0.8 Estimated Creat Clear 30.08 Estimated GFR 73 Glucose 139 H Hemoglobin A1c 8.0 H Lactate 1.3 Calcium 8.9 Magnesium 2.0 Total Bilirubin 0.3 Direct Bilirubin 0.3 AST 30 ALT 12 Alkaline Phosphatase 76 Troponin I < 0.01 C-Reactive Protein 4.2 H NT-Pro-B Natriuret Pep 205 Total Protein 6.8 Albumin 3.3 Lipase 36 Procalcitonin 0.06 Lab Acknowledgement Test Added
--- NOTE | 2025-03-26 10:00 | PM.GSCN ---
History of Present Illness Consult details Date Seen: 03/26/25 Consult date: 03/26/25 Narrative: The patient is an 85-year-old female who presented to the emergency department with persistent vomiting. Her history is that in December she began to feel ill while she was living in [place]. Workup revealed concern for ovarian cancer. She did undergo a biopsy and pathology confirmed this. She was found to have ascites and her granddaughter who accompanies her today states that they discussed paracentesis, however this was never scheduled. They were very frustrated because she was never able to get in to see Oncology either. The patient previously lived in [place] and most of her family lives here and so she recently presented to [place] for ongoing care. The patient herself states that she was not aware that she had cancer. She states that she has had abdominal distention since December. It has not been getting rapidly worse however she has not been feeling better. She has been constipated the past few days the previously was having regular bowel movements. She denies shortness of breath but does have some chest pain with the occasional deep breath. She has abdominal distension and has had vomiting for a week and a half. Denies any significant abdominal pain. She states that she has a family history of ovarian cancer in 3 paternal cousins as well as breast cancer in 3 paternal cousins. She previously underwent hysterectomy and unilateral oophorectomy many years ago. I was asked to perform a diagnostic and therapeutic paracentesis. [facility] Medical History (Updated 03/26/25 @ 11:53 by Rachell Alarcon MD) Diabetic neuropathy ?E11.40 - Type 2 diabetes mellitus with diabetic neuropathy, unspecified (ICD-10) Hyperlipidemia ?E78.5 - Hyperlipidemia, unspecified (ICD-10) Chronic back pain ?M54.9 - Dorsalgia, unspecified (ICD-10) ?G89.29 - Other chronic pain (ICD-10) Poorly controlled type 2 diabetes mellitus ?E11.65 - Type 2 diabetes mellitus with hyperglycemia (ICD-10) Surgical History (Updated 03/25/25 @ 22:50 by Divya Rodriguez MD) History of lumbar fusion ?Z98.1 - Arthrodesis status (ICD-10) History of partial hysterectomy ?Z90.711 - Acquired absence of uterus with remaining cervical stump (ICD-10) Social History Narrative: She is a nonsmoker. She drinks alcohol rarely. She has a many children and grandchildren who live in [place]. What is your current living situation?: I presently have a place to live Problems where you live: no known problems Problems where you live details: no known problems In the past 12 months, utilities in danger of being shut off: no In past 12 months, lack of transportation kept you from medical appts, meetings, work, or getting things needed for daily living: no In the past 12 mos, have been you worried that your food would run out before you had money to buy more?: never true In the past 12 mos, the food you bought just didn't last and you didn't have money to buy more?: never true Smoking Status: Current every day smoker What tobacco products do you use: cigarettes Do you use any of these nicotine containing products: None Second hand tobacco smoke exposure: Yes How often do you have a drink containing alcohol: never How often do you have six or more drinks on one occasion: Never AUDIT-C Alcohol total score: 0 Non-prescribed substance use: denies use Caffeine: Yes (Coffee) How often does anyone, including family, friends and others, physically hurt you: never How often does anyone, including family, friends and others, insult or talk down to you: never How often does anyone, including family, friends and others, threaten you with harm: never How often does anyone, including family, friends and others, scream or curse at you: never service: No Meds Home Medications and Allergies Home Medications ?Medication ?Instructions ?Recorded ?Confirmed ?Type aspirin 81 mg tablet,delayed 81 mg PO DAILY 09/23/23 03/25/25 History release glipizide 10 mg tablet 10 mg PO DAILY 09/23/23 03/25/25 History lisinopril 2.5 mg tablet 2.5 mg PO DAILY 09/23/23 03/25/25 History Held on 03/25/25. Instructions: on hold metformin 500 mg tablet 1,000 mg PO BID 09/23/23 03/25/25 History ondansetron 4 mg disintegrating 4 mg PO Q6H #20 tabs 09/29/23 03/25/25 Rx tablet hydrochlorothiazide 25 mg tablet 25 mg PO DAILY 03/25/25 03/25/25 History losartan 25 mg tablet (Cozaar) 25 mg PO DAILY 03/25/25 03/25/25 History metoprolol succinate 25 mg 25 mg PO DAILY 03/25/25 03/25/25 History tablet,extended release 24 hr nifedipine 30 mg tablet,extended 30 mg PO DAILY 03/25/25 03/25/25 History release pantoprazole 40 mg tablet,delayed 40 mg PO DAILY 03/25/25 03/25/25 History release promethazine 25 mg tablet 25 mg PO Q12H PRN 03/25/25 03/25/25 History Allergies Allergy/AdvReac Type Severity Reaction Status Date / Time No Known Drug Allergies Allergy Verified 03/25/25 18:42 Exam Narrative: Exam Narrative: General appearance: Alert, cooperative, and in no distress Eyes: PERRLA, eye lids clear, and sclera white HENT Head: Normocephalic Ears: External ears normal Pulmonary: Breathing nonlabored on room air Cardiovascular Heart: Regular rate Extremities: warm and well perfused Gastrointestinal Abdominal: Distended and tense. Nontender Musculoskeletal: Extremities: Upper: Both upper extremities have normal joint range of motion and intact strength. Lower: Both lower extremities have normal joint range of motion and intact strength. Skin: Normal skin color, texture, and turgor. Neurologic: No focal deficits Psychiatric: Alert, oriented, cooperative, normal affect. Const: Vital Signs, click to edit/add: Vital Signs - 24 hr 03/25/25 18:51 03/25/25 23:43 03/25/25 23:55 Temperature 98.1 F 97.8 F Pulse Rate 77 Pulse Rate [Pulse Oximeter] 86 79 Respiratory Rate 14 16 Blood Pressure [Le ft Arm] 133/77 Blood Pressure [Ri ght Upper Arm] 130/80 Pulse Oximetry 95 92 Oxygen Delivery Me thod Room Air Room Air 03/25/25 23:55 03/26/25 05:00 03/26/25 07:00 Temperature 97.4 F L 98.7 F Pulse Rate Pulse Rate [Pulse Oximeter] 68 75 Respiratory Rate 14 16 Blood Pressure [Le ft Arm] 119/71 123/76 Blood Pressure [Ri ght Upper Arm] Pulse Oximetry 90 95 Oxygen Delivery Me thod Room Air Room Air Room Air 03/26/25 08:09 Temperature Pulse Rate 70 Pulse Rate [Pulse Oximeter] Respiratory Rate Blood Pressure [Le ft Arm] Blood Pressure [Ri ght Upper Arm] Pulse Oximetry Oxygen Delivery Me thod Results Labs Labs: Abnormal lab results 03/25/25 Range/Units 20:48 WBC 12.93 H (4.50-11.00) K/uL RBC 3.73 L (4.00-5.20) m/uL Hgb 10.1 L (12.0-16.0) gm/dL Hct 30.8 L (33.0-51.0) % Plt Count 595 H (140-440) K/uL Neut % (Auto) 75.4 H (42.0-72.0) % Lymph % (Auto) 16.9 L (20-44) % Neut # (Auto) 9.70 H (1.7-7.0) K/uL Sodium 131 L (135-149) mmol/L Anion Gap 6 L (7-15) mEq/L Glucose 139 H (60-115) mg/dL Hemoglobin A1c 8.0 H (0-5.6) % C-Reactive Protein 4.2 H (0.5-1.0) mg/dL Diabetes panel 03/25/25 Range/Units 20:48 Sodium 131 L (135-149) mmol/L Potassium 4.1 (3.6-5.1) mmol/L Chloride 97 (96-114) mmol/L Carbon Dioxide 28 (20-32) mmol/L BUN 17 (7-30) mg/dL Creatinine 0.8 (0.5-1.5) mg/dL Glucose 139 H (60-115) mg/dL Hemoglobin A1c 8.0 H (0-5.6) % Calcium 8.9 (8.4-10.6) mg/dL AST 30 (12-35) U/L ALT 12 (4-35) U/L Alkaline Phosphatase 76 (40-150) U/L Total Protein 6.8 (6.0-8.3) g/dL Albumin 3.3 (3.3-5.0) g/dL Calcium panel 03/25/25 Range/Units 20:48 Calcium 8.9 (8.4-10.6) mg/dL Albumin 3.3 (3.3-5.0) g/dL Pituitary panel 03/25/25 Range/Units 20:48 Sodium 131 L (135-149) mmol/L Potassium 4.1 (3.6-5.1) mmol/L Chloride 97 (96-114) mmol/L Carbon Dioxide 28 (20-32) mmol/L BUN 17 (7-30) mg/dL Creatinine 0.8 (0.5-1.5) mg/dL Glucose 139 H (60-115) mg/dL Calcium 8.9 (8.4-10.6) mg/dL Adrenal panel 03/25/25 Range/Units 20:48 Sodium 131 L (135-149) mmol/L Potassium 4.1 (3.6-5.1) mmol/L Chloride 97 (96-114) mmol/L Carbon Dioxide 28 (20-32) mmol/L BUN 17 (7-30) mg/dL Creatinine 0.8 (0.5-1.5) mg/dL Glucose 139 H (60-115) mg/dL Calcium 8.9 (8.4-10.6) mg/dL Total Bilirubin 0.3 (0.1-1.5) mg/dL AST 30 (12-35) U/L ALT 12 (4-35) U/L Alkaline Phosphatase 76 (40-150) U/L Total Protein 6.8 (6.0-8.3) g/dL Albumin 3.3 (3.3-5.0) g/dL All other labs normal. Imaging Abdomen CT scan report/results: report reviewed and image reviewed CT scan - chest: report reviewed and image reviewed CT scan - pelvis: report reviewed and image reviewed Additional studies: CT chest abdomen pelvis: IMPRESSION: 1. Findings compatible with the reported history of ovarian cancer, including a left adnexal cystic mass that measures approximately 9.5 cm. 2. Extensive peritoneal carcinomatosis with large volume ascites, likely also malignant. 3. Small to moderate right and trace left pleural effusions with subjacent basilar consolidations, at least partially reflecting atelectasis. No definite suspicious pleural nodularity or enhancement to indicate pleural carcinomatosis. 4. Ill-defined subcapsular hypodensity along the anterior aspect of hepatic segment 5 measuring approximately 1.7 cm, nonspecific, though could reflect a metastasis. 5. Small to moderate hiatal hernia with a patulous distal esophagus containing small volume fluid, placing the patient at risk for aspiration. Please note that all CT scans at this facility use dose modulation, iterative reconstruction, and/or weight-based dosing when appropriate to reduce radiation dose to as low as reasonably achievable. Dictated by Minesh Gutierrez MD @ 03/25/2025 10:30:00 PM Progress Note:A&P Assessment and plan (1) Primary cancer of ovary with widespread metastatic disease: Status: Acute (2) Peritoneal carcinomatosis: Status: Acute (3) Malignant ascites: Status: Acute Plan The patient is an 85-year-old female with likely malignant ascites from ovarian cancer. In diagnostic and therapeutic ultrasound was requested. I explained the procedure to the patient and her granddaughter through the use of an collections analyst. The patient understands that risks include but are not limited to injury to abdominal structures, bleeding and infection. She also understands that I will not be able to remove all of the fluid, however she should feel significantly better. Has fluid reaccumulates, she may need repeat paracentesis in the future. The patient agreed to proceed.
[2025-03-26] MEDS: MORPHINE 2 MG/ML inj IVP (11:00)
--- NOTE | 2025-03-26 12:33 | W.PM.PARA ---
Paracentesis Date Date: 03/26/25 Procedure Note Procedure: Paracentesis with Ultrasound Guidance Type of paracentesis: Therapeutic Initial or Repeat?: Initial Surgeon: Jazmine Edwards Indications: The patient is an 85-year-old female with recent diagnosis of ovarian cancer who presents with a tense abdomen likely from malignant ascites. Paracentesis was requested to release symptoms as well as obtain fluid for cytology. Labs and Cytology Sent:: Yes Albumin infused: No Procedure Note:: Prior to the procedure, the risks and benefits of the procedure were discussed and an informed consent was obtained. Patient identification was confirmed and TIME OUT was performed. An ultrasound was brought onto the field and an easily accessible pocket of ascites was identified that was away from intraabdominal organs. The patient's abdomen in the right lower quadrant was prepped and draped in the usual sterile fashion. 1% Lidocaine was used to anesthetize the skin, soft tissues and peritoneum over the proposed needle insertion site. A skin incision was made with a scalpel just large enough to fit the needle. The needle with the paracentesis catheter was advanced into the abdomen and a cystic fluid was aspirated into the syringe. The needle was then withdrawn and the catheter was left in place. The catheter was then connected to the drainage tubing. 3.5 Liters of straw colored fluid was drained. The patient remained hemodynamically stable, however the procedure was stopped this point because her blood pressure has slowly drifted from 130 systolic to 115 systolic. This was sent to the lab for testing and cytology. Post procedure ultrasound revealed significantly less residual ascitic fluid. The catheter was then removed and the skin was closed with Dermabond. Patient tolerated procedure well and there were no immediate complications. Patient's vital signs were stable throughout the procedure.
--- NOTE | 2025-03-26 14:53 | PC.NURSE ---
End of shift [id number]: Pt AxOx4, cooperative, and pleasant with cares. System Admin utilized in person earth auger operator and Pt's family member in regarding communication. Pt preferred no ipad earth auger operator. Pt had a paracentesis this afternoon. Pt reported immediate relief following paracentesis. Pt tolerating diabetic diet well after being NPO overnight. PRN pain meds were given prior to the paracentesis and PRN Zofran was given with the Pts first meal. Pt has remained vitally stable following paracentesis. Purewick is intact, patent, and draining. Pt denies pain at this time. Therapies were held, Pt tolerating bedrest well. Uses call light appropriately. Pt appears eating meal with niece at bedside, call light within reach.
[2025-03-26] MEDS: INSULIN ASPART 100 UNIT/ML SUBCUT (21:19)
[2025-03-26 23:12] LABS: Troponin I* < 0.01 ng/mL (0.01-0.04)
[2025-03-27] MEDS: 0.9 % SODIUM CHLORIDE 1000 ml 1,000 ML 125 ML IV ×2 (00:35→07:52)
[2025-03-27 01:18] VITALS: PULSE 71
[2025-03-27 02:10] VITALS: BP 126/70; PULSE 82; RESP 17; TEMP 37.1; O2SAT 96
[2025-03-27 06:37] LABS: Basophils Absolute Auto 0.04 K/uL (0.00-0.30); Basophils Percent Auto 0.4 % (0.0-3.0); Eosinophils Absolute Auto 0.28 K/uL (0.00-0.50); Eosinophils Percent Auto 2.9 % (0.0-7.0); Hematocrit 29.6 % (33.0-51.0); Hemoglobin* 9.4 gm/dL (12.0-16.0); Immature Granulocytes Abs Auto 0.05 K/uL (0.00-0.30); Immature Granulocytes Pct Auto 0.5 %; Lymphocytes Absolute Auto 2.81 K/uL (0.90-2.90); Lymphocytes Percent Auto 29.5 % (20-44); Mean Corpuscular HGB Conc 32 gm/dL (32-36); Mean Corpuscular Hemoglobin 27 pg (26-34); Mean Corpuscular Volume 85 fL (80-100); Monocytes Percent Auto 7.9 % (0.0-11.0); Neutrophils Percent Auto 58.8 % (42.0-72.0); Platelet Count* 531 K/uL (140-440); RDW Coefficient of Variation % 14.3 % (11.5-15.5); White Blood Count* 9.53 K/uL (4.50-11.00)
[2025-03-27 06:40] LABS: Slide Review Reflex No
[2025-03-27 06:53] LABS: Chloride* 105 mmol/L (96-114); Potassium* 3.8 mmol/L (3.6-5.1); Sodium* 131 mmol/L (135-149)
[2025-03-27 06:56] LABS: Blood Urea Nitrogen* 9 mg/dL (7-30); Creatinine* 0.5 mg/dL (0.5-1.5); Est. Creatinine Clearance* 30.08; Estimated Glomerular Filt Rate 92 ml/min
[2025-03-27 06:57] LABS: Anion Gap 1 mEq/L (7-15); Calcium* 7.8 mg/dL (8.4-10.6); Carbon Dioxide* 25 mmol/L (20-32); Glucose* 100 mg/dL (60-115)
[2025-03-27 07:00] VITALS: BP 149/72; PULSE 73; RESP 16; TEMP 37; O2SAT 98
--- NOTE | 2025-03-27 08:01 | PC.NURSE ---
Shift note ([id number]): Patient pleasant, alert and oriented. Ambulated to bathroom with walker,?gait belt and assist of two. Last evening pt reported upper left chest discomfort. VSS. Reported that she has had this discomfort before but it had been a while since she had it. BART Godfrey was updated. New orders were given. Family were present at that time. Pt had no further complaints during night.?
[2025-03-27 08:07] VITALS: PULSE 72
[2025-03-27 11:00] VITALS: BP 129/81; PULSE 84; RESP 16; TEMP 37; O2SAT 98
--- NOTE | 2025-03-27 11:47 | P.DS_ITS ---
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, favor high grade -patient wishes to be full code and have full evaluation by Oncology to know all of her options and prognosis; family in agreement -referrals sent to our local Oncology team (may be willing to follow medically) and [facility], has appt on 04/03 with [facility] (2) Nausea & vomiting: Status: Acute Problem details: -likely 2/2 metastatic ovarian cancer + peritoneal carcinomatosis, no evidence of obstruction on 03/25/25 imaging -NPO on admission, significant symptom improvement 03/26/25 and tolerant of advanced diet -symptomatic cares, paracentesis with General Surgery 03/26 -improved during stay, tolerating po intake upon d/c (3) Poorly controlled type 2 diabetes mellitus: Status: Acute Problem details: -A1c 8.0 on 03/25/25 (has previously been as high as 13) -BG 90s-100s, on SSI (only required 3U during entire stay) -upon discharge, we are HOLDING Metformin and Glipizide given nausea and decreased po intake (4) Hyponatremia: Status: Acute Problem details: -Noted, mild (131-134), asymptomatic (5) Peritoneal carcinomatosis: Status: Acute Problem details: -[facility] appt scheduled upon d/c -has abdominal pain 2/2 this diagnosis, better symptom control with raised HOB and Rx for hospital bed provided upon discharge (6) Essential (primary) hypertension: Status: Acute Problem details: - lower BPs throughout stay + hyponatremia, HELD most of her medications - continue Metoprolol upon d/c DS: Summary Hospital Course Hospital Course: Meagan John) was admitted to the hospital on 03/25/25 for nausea and vomiting in the setting of known metastatic ovarian cancer. She was diagnosed in [place], recently moved to [place] to be closer to family. During her stay, imaging was consistent with known metastatic disease, malignant ascites, no SBO. Slowly advanced diet, tolerating po intake upon discharge, using prn Zofran for nausea. She had 3500mL of ascites removed during ultrasound guided paracentesis with General Surgery on 03/26. Patient and family want to follow up with Oncology locally; referral placed to [facility], may also f/u with our team locally if no surgical needs are identified. Granddaughter sees Dr. Deluna and requesting him for Natacha's PCP upon discharge. Time Spent with Patient Time attestation: Total time spent providing and/or coordinating discharge services: Time spent: Greater than 30 minutes Specific discharge activities: medication reconciliation Exam Narrative: Exam Narrative: GEN: Alert and oriented, frail, nontoxic HEENT: EOMIs bilaterally, no scleral icterus CV: Pulse palpates as RRR R: Breathing comfortably, no wheezing Ab: Less abdominal distention today Ext: Wearing Danilo hose Neuro: No focal deficits Psych: Appropriate Const: Vital Signs, click to edit/add: Vital Signs - 24 hr 03/26/25 12:00 03/26/25 15:15 03/26/25 15:20 Temperature 98.6 F 98.7 F Pulse Rate Pulse Rate [Pulse Oximeter] 63 76 76 Respiratory Rate 18 18 18 Blood Pressure [Le ft Arm] 113/59 L 118/62 Pulse Oximetry 98 96 Oxygen Delivery Me thod Room Air Room Air 03/26/25 15:28 03/26/25 19:00 03/26/25 22:05 Temperature 98.9 F Pulse Rate 69 Pulse Rate [Pulse Oximeter] 91 91 Respiratory Rate 17 20 Blood Pressure [Le ft Arm] 148/69 H 124/66 Pulse Oximetry 98 95 Oxygen Delivery Me thod Room Air Room Air 03/27/25 01:18 03/27/25 02:10 03/27/25 07:00 Temperature 98.8 F 98.6 F Pulse Rate 71 Pulse Rate [Pulse Oximeter] 82 73 Respiratory Rate 17 16 Blood Pressure [Le ft Arm] 126/70 149/72 H Pulse Oximetry 96 98 Oxygen Delivery Me thod Room Air Room Air 03/27/25 08:07 03/27/25 11:00 Temperature 98.6 F Pulse Rate 72 Pulse Rate [Pulse Oximeter] 84 Respiratory Rate 16 Blood Pressure [Le ft Arm] 129/81 Pulse Oximetry 98 Oxygen Delivery Me thod Room Air DS: Data Data Completed and Pending Labs on day of discharge: Labs from last 24 hours 03/27/25 03/26/25 03/26/25 05:45 Unknown 22:20 WBC 9.53 RBC 3.50 L Hgb 9.4 L Hct 29.6 L MCV 85 MCH 27 MCHC 32 RDW Coeff of Brenda 14.3 Plt Count 531 H Neut % (Auto) 58.8 Lymph % (Auto) 29.5 [place] % (Auto) 7.9 Eos % (Auto) 2.9 Baso % (Auto) 0.4 Neut # (Auto) 5.60 Lymph # (Auto) 2.81 [place] # (Auto) 0.80 Eos # (Auto) 0.28 Baso # (Auto) 0.04 Abs Immat Gran (auto) 0.05 Imm/Tot Granulo (auto) 0.5 Sodium 131 L Potassium 3.8 Chloride 105 Carbon Dioxide 25 Anion Gap 1 L BUN 9 Creatinine 0.5 Estimated Creat Clear 30.08 Estimated GFR 92 Glucose 100 Calcium 7.8 L Troponin I < 0.01 CA 125 (THOMAS) TSH 1.710 Cytology Interpretat Pending 03/26/25 05:45 WBC RBC Hgb Hct MCV MCH MCHC RDW Coeff of Brenda Plt Count Neut % (Auto) Lymph % (Auto) [place] % (Auto) Eos % (Auto) Baso % (Auto) Neut # (Auto) Lymph # (Auto) [place] # (Auto) Eos # (Auto) Baso # (Auto) Abs Immat Gran (auto) Imm/Tot Granulo (auto) Sodium Potassium Chloride Carbon Dioxide Anion Gap BUN Creatinine Estimated Creat Clear Estimated GFR Glucose Calcium Troponin I CA 125 (THOMAS) Pending TSH Cytology Interpretat Preliminary micro results at discharge 03/26/25 Unknown Body Fluid Culture - Preliminary Peritoneal Fluid No growth. Discharge Plan Discharge Disposition: Home, Self-Care Date of Admission: 03/25/25 23:43 Attending Provider on Discharge: Rachell Alarcon Consulting Providers: Jazmine Edwards Primary Care Provider: Faraz Deluna Condition: Guarded Anticipated Discharge Date/Time: 03/27/25 15:00 Discharge Medications: New morphine 15 mg tablet 15 mg PO Q6H PRN (Reason: pain) Qty: 20 0RF Continued aspirin 81 mg tablet,delayed release (DR/EC) 81 mg PO DAILY promethazine 25 mg tablet 25 mg PO Q12H PRN metoprolol succinate 25 mg tablet extended release 24 hr 25 mg PO DAILY ondansetron 4 mg tablet,disintegrating 4 mg PO Q6H Qty: 20 0RF Held metformin 500 mg tablet 1,000 mg PO BID Hold Instructions: hold until f/u with Dr. Deluna glipizide 10 mg tablet 10 mg PO DAILY Hold Instructions: hold until f/u with Dr. Deluna Discontinued lisinopril 2.5 mg tablet 2.5 mg PO DAILY hydrochlorothiazide 25 mg tablet 25 mg PO DAILY pantoprazole 40 mg tablet,delayed release (DR/EC) 40 mg PO DAILY losartan [Cozaar] 25 mg tablet 25 mg PO DAILY nifedipine 30 mg tablet extended release 30 mg PO DAILY Discharge Orders: Discharge Order (Routine); Ordered 03/27/25 Ordered By: Rachell Alarcon Patient Education: Morphine, Rapid Release (By mouth), High Protein Diet (DC) Additional Instructions: We are stopping many of Meagan's Blood Pressure medications because her BP was on the lower side here and some of these medications can contribute to nausea. Continue the Metoprolol. Work on high protein intake at home (Ensure shakes, Fair life, etc), okay to hold the Metformin and Glipizide until you see Dr. Deluna. Continue Zofran as needed for nausea, Morphine as needed for pain (can cause mild lightheadedness and dizziness). Keep appointment with [facility] on 04/03, they will discuss options regarding surgery, other treatments, etc. Dr. Brown from the [facility] Oncology group will also review your information and see if she is able to see you here. The number for our Oncology department is [phone] Activity Level: No strenuous activity Discharge Diet: High Protein/High Calorie Follow Up Appointments: Faraz Deluna MD [Primary Care Provider, Family Practice] - 04/02/25 10:15 am Referral Note: [facility] for hospital follow-up. Forms: [facility] [employer] Info Instructions
[2025-03-27] MEDS: MORPHINE 2 MG/ML inj IVP (13:17)
--- NOTE | 2025-03-27 14:17 | PC.SOCIAL ---
Addendum entered and electronically signed by Miguelina Sharma LCSW 03/27/25 16:08: JEFFERY received call from Jennifer at [facility] that the doctor's reasoning for a bed needs to be more clear and a facesheet needs to be provided. JEFFERY informed that SW will talk with doctor tomorrow to have this udpated and will fax this to Jennifer then. SW left handoff for next SW. Original Note: Crm Architect Consult: JEFFERY spoke with patient and granddaughter Leda. Leda chose to interpret. SW inquired about resources/support for home. Patient states she doesn't know of anything and asked Leda about what she things. Leda discussed needing to get patient on insurance in [place] and the need for a hospital bed at home. JEFFERY discussed [facility], [facility], and [facility] as options for support with insurance and that Leda could call them to learn about the transferring of insurance from one state to the next. SW also states that she will look into getting an order for a hospital bed and an agency that could support with this. Patient and Leda had no other questions at this time. JEFFERY called [facility] to learn about how to transfer insurance. [facility] states patient would need to call the state that their insurance is in to initiate the transfer. JEFFERY called [facility] to discuss getting a hospital bed at home and the process. JEFFERY spoke with Juan Manuel who states that patient would need to have insurance in [place] in order to have insurance cover the cost. In addition to that, the patient would need a doctor's order and a face to face detailing why the bed is needed to get approved. JEFFERY inquired about private pay cost. Juan Manuel reports that the cost is $225 a month and that if patient gets insurance in [place] then they can transition to billing that. JEFFERY asked if SW could send the order and documentation needed so they would have that when the time comes that patient's insurance is tranferred. Juan Manuel states yes and provided the fax number - [phone]. JEFFERY spoke with patient and granddaughter Leda and updated on the information SW learned about insurance transfer and hospital bed. SW provided them with the information for all of this and the county. JEFFERY discussed sending bed order and discharge summary to [facility] and Leda confirmed they would like this. Leda brought up questions around Home Health Care and attendant care. JEFFERY explained that it would be best to discuss this at the PCP appt and to also call the county to see what things could be initiated now without the insurance transferred yet for any waiver services. Patient's daughter then arrived and inquired about FMLA paperwork. The provider who was working with the family and discharged them had already left for the day so SW encouraged to bring this to the PCP appt as typically FMLA paperwork is completed in the clinic. Daughter expressed understanding. Granddaughter was wondering when the appt was. JEFFERY informed that it is 04/02/25 at 1015. Patient and family had no other questions at this time. JEFFERY provided card with main SW number if questions arise. JEFFERY faxed hospital bed order and discharge summary with provider support for bed to [facility].
--- NOTE | 2025-03-27 17:03 | PC.NURSE ---
Pt discharged @ 1606 via wheelchair, accompanied by family members. Back to home. Discharge/belonging forms were signed @ 1530. Both family members interpreted to Pt regarding discharge information. Pt reported understanding. No active pain/nausea present. IV removed. Final room check complete.
[2025-03-28 20:48] LABS: Cancer Antigen 125 2873 U/mL (<=38)
--- NOTE | 2025-03-29 12:49 | PC.SOCIAL ---
Discharge planning: wax ball knock out worker faxed new information on the prescription for the hospital bed and a face sheet to [facility] at fax number #[phone]. Social work to follow-up as needed.
== END 2025-03-27 16:06 | disposition home or self-care (01) | DRG 755 ==
LOC: ED 20:07 → MEDSURG 23:14
PROVIDERS: Family Medicine; Physician Assistant; Admitting Provider Family Medicine; Emergency Provider Family Medicine; PCP Family Medicine; Visit Provider Family Medicine
DX: C56.2 Malignant neoplasm of left ovary (principal); C78.6 Secondary malignant neoplasm of retroperitoneum and peritoneum; R18.0 Malignant ascites; E87.1 Hypo-osmolality and hyponatremia; E11.65 Type 2 diabetes mellitus with hyperglycemia; E11.40 Type 2 diabetes mellitus with diabetic neuropathy, unspecified; Z79.84 Long term (current) use of oral hypoglycemic drugs; G89.29 Other chronic pain; M54.9 Dorsalgia, unspecified; R11.2 Nausea with vomiting, unspecified; Z79.4 Long term (current) use of insulin; D23.9 Other benign neoplasm of skin, unspecified; K44.9 Diaphragmatic hernia without obstruction or gangrene; E78.5 Hyperlipidemia, unspecified; Z72.0 Tobacco use; Z79.82 Long term (current) use of aspirin; I10 Essential (primary) hypertension
CPT/HCPCS: 36415; 49083; 51798; 71260; 74177; 80048; 80076; 82962; 83036; 83605; 83690; 83735; 83880; 84145; 84443; 84484; 85025; 85610; 86140; 86304; 87070; 88112; 88305; 88341; 88342; 93005; 93971; 94761; 99284; 99285; T1013; J1650; J2270; J2405; J2470; J7030; Q9967

== ENCOUNTER 2025-05-03 12:02 | Emergency (ER) | payer OTHER, SELFPAY ==
--- OUTSIDE RECORDS SUMMARY | 2013-08-25 19:00 | XMS_ITS | Continuity of Care Document ---
Author Organization [facility] Address [address] [place] [phone] Phone Care Team Providers Care Design Project Manager Name Role Phone Provider, [facility] Unavailable Unavailable Advance Directives Directive Yes / No Effective Date File Name No Information Encounters Encounter Description Practice Location Reason(s) For Visit Diagnoses Date Provider [facility], [address] [place] [address], [id number], tel:[phone] No Information 3-201 3 Provider [facility]. . 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 . [facility], [address] [place] [address], [id number], tel:[phone] [facility] Location DIABETES MELLITUS TYPE II UNCOHYPERLIPIDEMIA UNSPECIFIEDDEPRESSIONGASTROES OPHAGEAL REFLUX 4-200 9 Provider [facility]. . Family History Family Member Type Diagnosis Age At Onset No Information Payers Payer name Insurance type Covered green party ID Authoriza tion(s) No Information Social History Type Description Quantity Date Captured Comments Sex Female Smoking Status No Information Chief Complaint And Reason For Visit No Information History Of Present Illness Encounter Date Complaint History Of Prese nt Illness No Information Instructions Date Instruction Additional Infor mation No Information Assessments Type Assessment Date No Information
--- OUTSIDE RECORDS SUMMARY | 2013-08-25 19:00 | XMS_ITS | Continuity of Care Document ---
Author Organization [facility] Address [address] [place] [phone] Phone Care Team Providers Care Transmission Builder Name Role Phone Provider, [facility] Unavailable Unavailable Advance Directives Directive Yes / No Effective Date File Name No Information Encounters Encounter Description Practice Location Reason(s) For Visit Diagnoses Date Provider [facility], [address] [place] [address], [id number], tel:[phone] No Information 3-201 3 Provider [facility]. . 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 . [facility], [address] [place] [address], [id number], tel:[phone] [facility] Location DIABETES MELLITUS TYPE II UNCOHYPERLIPIDEMIA UNSPECIFIEDDEPRESSIONGASTROES OPHAGEAL REFLUX 4-200 9 Provider [facility]. . Family History Family Member Type Diagnosis Age At Onset No Information Payers Payer name Insurance type Covered libertarian ID Authoriza tion(s) No Information Social History Type Description Quantity Date Captured Comments Sex Female Smoking Status No Information Chief Complaint And Reason For Visit No Information History Of Present Illness Encounter Date Complaint History Of Prese nt Illness No Information Instructions Date Instruction Additional Infor mation No Information Assessments Type Assessment Date No Information
--- OUTSIDE RECORDS SUMMARY | 2025-05-03 12:04 | XMS_ITS ---
Author Name Interface, [id number] lity Address [address] [place] [address] [address] [address] Organization [facility] Address [facility] [address] [address] Allergies and Adverse Reactions Medication/Group Name Reaction Severity Date No known allergies Plan Date Type Value 04/03/2025 APPOINTMENT LAB 15 MIN 04/03/2025 APPOINTMENT NEW PT CONSULT 4 5 MIN 04/03/2025 LABORDER iSTAT creatinine panel 04/03/2025 LABORDER Magnesium Panel 04/03/2025 LABORDER CBC w/ auto diff 04/03/2025 LABORDER CA 125 panel 04/03/2025 LABORDER CMP 04/03/2025 LABORDER Myriad My Risk ( Blood) Reason for Visit PORT DRAW 15 MIN Immunizations Date Name Route Dose Instructions Refusal Reason Stat us Flu vaccine - Adult Patient declined/rejected Not Administered Diagnostic Results Date Type Test Units Lower Limit Upper Limit Result Flag Comments Status Ordered By Specimen Source Lab Address 04/03 CA 125 panel CA 125 U/ML 0.0 35.0 5610.00 Resulte d with diluted sample High Test performed at [facility] on a [employer] 7600 Immunoass ay Analyzer that uses an immunomet adiel immunoass ay technique . Patient testing should not be performed using multiple methodclif corona due to analytica l variation seen between test methodclif corona. FINAL Betty Lanier * [facility] , [facility]0 [facility] [address] [facility] [id number] 0 04/03 iSTAT creat inine panel Creat inine , iSTAT mg/dl 0.6 1.3 0.9 FINAL Betty Lanier [facility] , [address] [place] [address] [id number] 04/03 iSPARIT zafarat inine panel GFR estim ate ml/min /1.73m ^2 63.0 GFR is calculate d using the CKD-EPI equation. FINAL Betty Lanier [facility] , [address] [place] [address] [id number] 04/03 CBC w/ auto diff WBC K/uL 3.0 8.9 14.7 High FINAL Betty Lanier [facility] , [address] [place] [address] [id number] 04/03 CBC w/ auto diff HGB g/dL 11.3 15.2 12.0 FINAL Betty Lanier [facility] , [address] [place] [address] [id number] 04/03 CBC w/ auto diff PLT K/uL 113.0 364.0 481 High FINAL Betty Lanier [facility] , [address] [place] [address] [id number] 04/03 CBC w/ auto diff Catina # (ANC) K/uL 1.6 6.6 11.5 High FINAL Betty Lanier [facility] , [address] [place] [address] [id number] 0 04/03 CBC w/ auto diff Catina % % 43.0 74.0 78.5 High FINAL Betty Lanier [facility] , [address] [place] [address] [id number] 0 04/03 CBC w/ auto diff IG % % 0.0 0.5 0.6 High FINAL Betty Lanier [facility] , [address] [place] [address] [id number] 0 04/03 CBC w/ auto diff IG # K/uL 0.0 0.03 0.09 High FINAL Betty Lanier [facility] , [address] [place] [address] [id number] 04/03 CBC w/ auto diff LY % % 14.0 41.0 14.1 FINAL Betty Lanier [facility] , [address] [place] [address] [id number] 0 04/03 CBC w/ auto diff MO % % 6.0 15.0 5.6 Low FINAL Betty Lanier [facility] , [address] [place] [address] [id number] 04/03 CBC w/ auto diff EO % % 0.0 7.0 0.8 FINAL Betty Lanier [facility] , [address] [place] [address] [id number] 04/03 CBC w/ auto diff BA % % 0.0 2.0 0.4 FINAL Betty Lanier [facility] , [address] [place] [address] [id number] 0 04/03 CBC w/ auto diff LY # K/uL 0.4 3.6 2.1 FINAL Betty Lanier [facility] , [address] [place] [address] [id number] 0 04/03 CBC w/ auto diff MO # K/uL 0.2 1.3 0.8 FINAL Betty Lanier [facility] , [address] [place] [address] [id number] 0 04/03 CBC w/ auto diff EO # K/uL 0.0 0.6 0.1 FINAL Betty Lanier [facility] , [address] [place] [address] [id number] 0 04/03 CBC w/ auto diff BA # K/uL 0.0 0.2 0.1 FINAL Betty Lanier [facility] , [address] [place] [address] [id number] 0 04/03 CBC w/ auto diff NRBC % #/100W BC 0.0 0.2 0.0 FINAL Betty Lanier [facility] , [address] [place] [address] [id number] 0 04/03 CBC w/ auto diff RBC M/uL 3.9 5.1 4.51 FINAL Betty Lanier [facility] , [address] [place] [address] [id number] 0 04/03 CBC w/ auto diff HCT % 35.0 48.0 37.2 FINAL Betty Lanier [facility] , [address] [place] [address] [id number] 0 04/03 CBC w/ auto diff MCV fL 80.0 104.0 82.5 FINAL Betty Lanier [facility] , [address] [place] [address] [id number] 0 04/03 CBC w/ auto diff MCH pg 26.0 35.0 26.6 FINAL Betty Lanier [facility] , [address] [place] [address] [id number] 0 04/03 CBC w/ auto diff MCHC g/dL 30.0 35.0 32.3 FINAL Betty Lanier [facility] , [address] [place] [address] [id number] 0 04/03 CBC w/ auto diff MPV fL 9.5 13.4 9.7 FINAL Betty Lanier [facility] , [address] [place] [address] [id number] 0 04/03 CBC w/ auto diff RDW % 11.4 16.1 14.70 FINAL Betty Lanier [facility] , [address] [place] [address] [id number] 0 04/03 Magne sium, mg/dL mg/dL 1.6 2.3 1.8 FINAL Betty Lanier * [facility] , [address] [facility] [id number] 0 04/03 CMP Album in g/dL 3.5 5.0 3.1 Low FINAL Betty Lanier * [facility] , [address] [facility] [id number] 0 04/03 CMP Alkal ine phosp hatas e U/L 36.0 125.0 97 FINAL Betty Lanier * [facility] , [address] [facility] [id number] 0 04/03 CMP ALT/S GPT U/L 0.0 34.0 11 FINAL Betty Lanier * [facility] , [address] [facility] [id number] 0 04/03 CMP AST/S GOT U/L 14.0 36.0 27 FINAL Betty Lanier * [facility] , [address] [facility] [id number] 0 04/03 CMP BUN mg/dL 7.0 17.0 21.0 High FINAL Betty Lanier * [facility] , [address] [facility] [id number] 0 04/03 CMP Calci um mg/dL 8.4 10.2 8.3 Low FINAL Betty Lanier * [facility] , [address] [facility] [id number] 0 04/03 CMP Chlor mando mmol/L 96.0 107.0 100 FINAL Betty Lanier * [facility] , [address] [facility] [id number] 0 04/03 CMP CO2 mmol/L 22.0 30.0 22 The expected total allowable error for CO2 is 5.6%. We have seen up to 10% differenc e in values if reported at the end of the 96 hour stability window. Please consider the clinical significa nce of a 2.0-2.5 mmol/L lower reported CO2 value if reported at the end of the 96 hour stability window. FINAL Betty Lanier * [facility] , [address] [facility] [address] [facility] [id number] 0 04/03 CMP Creat inine mg/dL 0.66 1.25 0.80 FINAL Betty Lanier * [facility] , [facility] [address] [id number] 0 04/03 CMP GFR estim ate ml/min /1.73m ^2 72.5 GFR is calculate d using the CKD-EPI equation. FINAL Betty Lanier * [facility] , [address] [facility] [address] [id number] 0 04/03 CMP Gluco se mg/dL 74.0 100.0 234 High FINAL Betty Lanier * [facility] , [facility] [address] [id number] 04/03 CMP Potas sium mmol/L 3.5 5.1 5.1 FINAL Betty Lanier * [facility] , [address] [address] [id number] 0 04/03 CMP Sodiu m mmol/L 137.0 145.0 129 Low FINAL Betty Lanier * [facility] , [address] [facility] [address] [id number] 0 04/03 CMP Bilir ubin, total mg/dL 0.2 1.3 0.4 FINAL Betty Lanier * [facility] , [address] [address] [id number] 0 04/03 CMP Total prote in g/dL 6.3 8.2 6.3 FINAL Betty Lanier * [facility] , [address] [facility] [address] [facility] [id number] 0 Medications Date Name Route Dose Frequency Instructions Start Date End Date Status Promethazine Oral q12 prn active Ondansetron Oral q6h active Metoprolol Oral (Tartrate) daily active Aspirin Oral daily acti ve 2024 ondansetron 8 MG Disintegrating Oral Tablet orally 1.0 tablet,disin tegrating every 8 hours 2024 active 2024 lidocaine 25 MG/ML / prilocaine 25 MG/ML Topical Cream topically 1.0 application once 2024 active Problems Diagnosis Status Date of Diagnosis Resolution Date Type 2 diabetes Active Ovarian cancer Active Notes Section * DIRECTOR OF 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 Divya Rodriguez MD : I had the pleasure of seeing your patient, Miss JUNIOR SUAREZ in regards to her recent referral fora new diagnosis of ovarian cancer. Though you will, no doubt, recall her history, the following is a copy of my consultation. Please do not hesitate to contact me directly with any concerns at my [place] office at . ??Again, I appreciate your referral of this delightful patient and your support of our practice.?? Sincerely Yours, Betty Lanier M.D. [facility] Reason for Consult:* Primary diagnosis: Metastatic ovarian cancer?? * Prior treatments: Partial hysterectomy?? * Genetic testing: Not inidctaed History of Present Illness ([facility]): This is a??delightful patient who was diagnosed with a advanced ovarian cancer on 331 after biopsy in [place]. ??She had difficulties getting established with an oncologist, recently relocated here, underwent paracentesis confirming the same on??6 3, and is referred here for further care and management. The patient's biggest concern today is that the fluid accumulating in her abdomen is keeping her from eating.?? She is having bowel function. ??She is able to eat but throws up if she has a large meal.?? Her last bowel movement was yesterday. Genetic Testing ([facility]): Not indicated?? Review of Systems: A complete 14-point review of systems is negative except as noted in the above history of present illness. 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 History: No history of??abnormal??testing Allergies: No known medication allergies Medications: * Metoprolol Oral (Tartrate) 25 mg tablet daily * Aspirin Oral 81 mg tablet daily * Ondansetron Oral q6h * Promethazine Oral 25 mg tablet q12 prn Family History: Family history of ovarian cancer in 3 paternal cousins as well as breast cancer in 3 paternal cousins Social History: Smoking Status Smoking Tobacco : Former smoker, stopped smokin11/2024; Smokeless Tobacco : Neverused smokeless tobacco; Vaping : Never vaped Vital Signs: Blood pressure: , Pulse: , Temperature: , Respirations: , O2 sat: , Pain Scale: , Height: , Weight:, BSA: , BMI: Performance Status ECOG 2 In bed <50% of the time. Ambulatory and capable of all self-care, but unable to carry out any work activities. Up and about more than 50% of waking hours. 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 The patient appears comfortable, in no acute distress. HEENT: ??Head normocephalic, atraumatic. ??Extraocular movements intact on confrontation No conjunctivitis. ??No evidence of erythema. ?? Lymphatics: ??Cervical, supraclavicular, infraclavicular, axillary and inguinal nodes not palpable. Abdomen: ??Bowel sounds present and active. Soft, nontender, nondistended with no hepatosplenomegaly or masses noted. Pelvic: Examination of the external genitalia reveals normal vulvar, perianal, perineal or urethralmeatal lesions. Bartholin's glands are normal. Speculum exam reveals no bladder, urethral or vaginal lesions, and a grossly normal cervix. 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 Muscles and Joints: ??Extremities are warm and well perfused without edema or calf tenderness. Laboratory Data: ? Imaging: INDICATION: act hx of ovarian cancer. TECHNIQUE: CT chest, abdomen and pelvis acquired 80 cc [id number] IV contrast. COMPARISON: None. FINDINGS: CHEST: Cardiovascular structures: Heart size is normal. Thoracic aorta and Main pulmonary artery are normal in caliber. Mediastinum and seble: No lymphadenopathy by size criteria. Lungs and pleura: Small to moderate right and trace left pleural effusions with subjacent basilar consolidations, at least partially reflecting atelectasis. Respiratory Motionartifact limits fine detail evaluation of the lung parenchyma. No evidence suspicious pulmonary noduies or infiltrates_ .Chest wall and axilla: No mass or .adenopathy. .Bones: No suspicjouS bone lesio ns. Unremarkable for age.??ABDOMEN AND PELVIS: Multilevel mild motion artifatt liMiting fine detailevaluation. Liver: Ilkiefined subcapsular hypodensity a???perry the anterior aspect of hepatic .segment 5 measuring approximately 1.7 cm (). Gallbladder and bile.ducts: Unremarkable. Pancreas: Unremarkable.. Spleen: Unremarkable. Adrenal glands: Unremarkable. Kidneys: Right renal cysts and otherbilateral subcentimeter cortical hypodenSities, too small to characterize. No hydroureteronephrosisor evident urolithiaSis. GI tract: Small to moderate Ying hernia with a patulous distal esophagus containing small volume fluid. Bowel is normal in caliber without evidence of obstruction. Vascular structures: Unremarkable for age. Lymph nodes: No evident lymphadenopathy by size criteria. Peritoneum/Retroperitoneum/Abdominal Wall: Extensive peritoneal hyperenhancing nodularity, most pronounced in the right subdiaphragmatic region (for example, 09/07). There is also enhancing nodularity along the hepatic falciform ligament, also compatib???e with peritoneal imp???ants. Large volume ascites. No:free air. Pelvic Organs: Extensive irregularity of the adnexae with a large left adnexal cystic mass with an anterior wall that is poorly visualized, but measures approXimately 9.5 cm (11117). Thickened endometrium measuring approximate 1.1 cm () Bones and superficial soft tissues: Chronic appearing compression deformity of the L1 vertebral body with approximately 50 percent height loss centrally. No suspicious bone leSiont. Unremarkable for age. IMPRESSION: 1. Findings compatible with the reported history of ovarian cancer, including a left .adnexal cystic mass that measures approximately 9.5 cm_ 2. Extensive peritoneal carcinornatosis with large volume ascites, likely also malignant.. a Small to moderate right and trace left pleura??? effusions with subjacent basilar consolidations, at least partially reflecting atelectasis. No definite suspicious pleural nodularity or enhancement to indicate pleural carcinomatosis. 4. III-defined subcapsular hypodensity along the anterior aspect of hepatic segment .5 measuring approximately 1.7 cm, nonspecific, though could reflect a metastasis. Problems: * Ovarian cancer * Type 2 diabetes Assessment & Plan ([facility]): This is a??delightful patient who was diagnosed with a advanced ovarian cancer on 331 after biopsy in [place]. ??She had difficulties getting established with an oncologist, recently relocated here, underwent paracentesis confirming the same on??6 3, and is referred here for further care and management. The patient's biggest concern today is that the fluid accumulating in her abdomen is keeping her from eating.?? She is having bowel function. ??She is able to eat but throws up if she has a large meal.?? Her last bowel movement was yesterday. Given the patient's personal history of ovarian cancer as well as extensive family history of ovarian and breast cancer??genetic testing is indicated and is ordered today. MyRisk is a genetic test that evaluates 48 genes to elucidate risk of developing 11 different types of hereditary cancers including breast, colon and ovarian. When coupled with RiskScore??, it can assess five-year and lifetime risk of developing breast cancer. I counseled the patient that this is is performed via blood or saliva sample, and that we commonly collect it with her other labs, and results are available within four weeks. In regards to her therapy, today I discussed with her that based on her advanced cancer as well as her age,??and pleural effusions, I recommend proceeding on with induction chemotherapy with carboplatin and Taxol chemotherapy.?? I extensively discussed this with the patient, her daughter, and her 2 granddaughters, 1 of whom presents via phone from [place].?? I discussed with them that??carboplatin and paclitaxel are 2 of the most common treatments for adenocarcinomas. ??It is used in many different cancers. ??It is given in a chemotherapy unit, intravenously, and typically through a port. ??Each cycle is by 21 days. Although it can have serious and life-threatening side effects, it is commonly tolerated extremely well. ??Common side effects include weakened immunity over time, anemia, neutropenia, and alopecia. ??Over time patients can develop peripheral neuropathy, and fatigue is common.?? The symptoms are more profound in patients in their 80s, and, as we continue through treatment, the patient may want to transition away from chemotherapy to palliative care.?? The patient is??adamant that she would like to undergo therapy,??but her family is open to the idea that she may not tolerate treatment as well as she anticipates. In regards to her fluid burden, she is not clinically obstructed, her most CT??recent CT scan showsno evidence of obstruction, and there is stool in the vault.?? This said she is having extreme difficulty tolerating foods, likely secondary to tumor ileus. ??Therefore I provided them with instructions on a high calorie low residue diet to assist him with that going forward.?? Paracentesis is ordered PRN and the patient would like to pursue one additional paracentesis prior to chemo.? I addressed with the patient extensively that palliative care with hospice is a option that would allow better pain control immediately for her, and we would be able to place an indwelling??Pleurx catheter to assist her going forward, she is insistent that she would like to at least try to pursue chemotherapy. Today I spent greater than an hour in direct [id number] patient consultation, conversation and coordination of care.?? That??patient required an external historian and model maker firearms throughout. Pain Care Management: Pain Scale: 0 Patient Care needs: Depressions Status: Was screened; Outcome positive: No; Screening Date: 04/03/2025; Screening Tool:PRIME SANCHES-PHQ2; Total depression score: 1 Smoking Status: Smoking Tobacco : Former smoker, stopped smokin11/2024; Smokeless Tobacco : Never used smokeless tobacco; Vaping : Never vaped Orders: Labs:??* 04/03/2025, CA 125 panel, Perform Date: 04/03/2025, Perform Location: [place] * 04/03/2025, CBC w/ auto diff, Perform Date: 04/03/2025, Perform Location: [place] * 04/03/2025, CMP, Perform Date: 04/03/2025, Perform Location: [place] * 04/03/2025, Magnesium Panel, Perform Date: 04/03/2025, Perform Location: [place] * 04/03/2025, iSTAT creatinine panel, Perform Date: 04/03/2025, Perform Location: [place] Medications:? Imaging:? Services:??* 04/03/2025, Abdominal paracentesis (procedure), Instructions: Please schedule paracentesis, PerformDate: Start on:??04/03/2025?End by:??04/03/2025? (PRN) * 04/03/2025, Palliative care consult, Perform Date: 04/15/2025 * 04/03/2025, Pelvic examination (List separately in addition to code for primary procedure), PerformDate: 04/03/2025 * 04/03/2025, Port placement, Perform Date: 04/15/2025 * 04/03/2025, RTC FILLING STATION ATTENDANT/PA and infusion, Perform Date: 04/15/2025 * 04/03/2025, RTC chemo teaching, Instructions: RTC - RN, Chemo teach, Perform Date: 04/15/2025 * 04/03/2025, Refer to supervisor shuttle veneering, Instructions: Hi calorie low residue, Perform Date: 04/15/2025 Regimens: ?= Betty Lanier MD Copy to: FAX Faraz Rodriguez MD (Referring) ?? Electronically signed by Betty Lanier MD 04/03/2025 11:20 CDT
--- OUTSIDE RECORDS SUMMARY | 2025-05-03 12:04 | XMS_ITS ---
Author Name Interface, [id number] lity Address [address] [place] [address] [address] [address] Organization [facility] Address [facility] [address] [address] Allergies and Adverse Reactions Medication/Group Name Reaction [...] with diluted sample High Test performed at [facility] on a [address] Immunoass ay Analyzer that uses an immunomet adiel immunoass ay technique . Patient testing should not be performed using multiple methodclif corona due to analytica l variation seen between test methodclif corona. FINAL Betty Lanier * [facility] , [facility] [address] [facility] [id number] 0 04/03 iSTAT creat inine panel Creat inine , iSTAT mg/dl 0.6 1.3 0.9 FINAL Betty Lanier [facility] , [address] [place] [address] [id number] 0 04/03 iSPARIT zafarat inine panel GFR estim ate ml/min /1.73m ^2 63.0 GFR is calculate d using the CKD-EPI equation. FINAL Betty Lanier [facility] , [address] [place] [address] [id number] 0 04/03 CBC w/ auto diff WBC K/uL 3.0 8.9 14.7 High FINAL Betty Lanier [facility] , [address] [place] [address] [id number] 0 04/03 CBC w/ auto diff HGB g/dL 11.3 15.2 12.0 FINAL Betty Lanier [facility] , [address] [place] [address] [id number] 0 04/03 CBC w/ auto diff PLT K/uL 113.0 364.0 481 High FINAL Betty Lanier [facility] , [address] [place] [address] [id number] 0 04/03 CBC w/ auto diff Catina # (ANC) K/uL 1.6 6.6 11.5 High FINAL Betty Lanier [facility] , [address] [place] [address] [id number] 0 04/03 CBC w/ auto diff Catina % % 43.0 74.0 78.5 High FINAL Betty Lanier [facility] , [address] [place] [address] [id number] 0 04/03 CBC w/ auto diff IG % % 0.0 0.5 0.6 High FINAL Betty Lanier [facility] , [address] [place] [address] [id number] 0 04/03 CBC w/ auto diff IG # K/uL 0.0 0.03 0.09 High FINAL Betty Lanier [facility] , [address] [place] [address] [id number] 0 04/03 CBC w/ auto diff LY % % 14.0 41.0 14.1 FINAL Betty Lanier [facility] , [address] [place] [address] [id number] 0 04/03 CBC w/ auto diff MO % % 6.0 15.0 5.6 Low FINAL Betty Lanier [facility] , [address] [place] [address] [id number] 0 04/03 CBC w/ auto diff EO % % 0.0 7.0 0.8 FINAL Betty Lanier [facility] , [address] [place] [address] [id number] 0 04/03 CBC w/ auto diff BA % % 0.0 2.0 0.4 FINAL Betty Lanier [facility] , [address] [place] [address] [id number] 0 04/03 CBC w/ auto diff LY # K/uL 0.4 3.6 2.1 FINAL Betty Lanier [facility] , [address] [place] [address] [id number] 0 04/03 CBC w/ auto diff MO # K/uL 0.2 1.3 0.8 FINAL Betty Lanier [facility] , [address] [place] [address] [id number] 0 04/03 CBC w/ auto diff EO # K/uL 0.0 0.6 0.1 FINAL Betty Lanier [facility] , [address] [place] [address] [id number] 0 04/03 CBC w/ auto diff BA # K/uL 0.0 0.2 0.1 FINAL Betty Lanier [facility] , [address] [place] [address] [id number] 0 04/03 CBC w/ auto diff NRBC % #/100W BC 0.0 0.2 0.0 FINAL Betty Lanier [facility] , [address] [place] [address] [id number] 0 04/03 CBC w/ auto diff RBC M/uL 3.9 5.1 4.51 FINAL Betty Lanier [facility] , [address] [place] [address] [id number] 0 04/03 CBC w/ auto diff HCT % 35.0 48.0 37.2 FINAL Betty Lanier [facility] , [address] [place] [address] [id number] 0 04/03 CBC w/ auto diff MCV fL 80.0 104.0 82.5 FINAL Betty Lanier [facility] , [address] [place] [address] [id number] 0 04/03 CBC w/ auto diff MCH pg 26.0 35.0 26.6 FINAL Betty Lanier [facility] , [address] [place] [address] [id number] 0 04/03 CBC w/ auto diff MCHC g/dL 30.0 35.0 32.3 FINAL Betty Lanier [facility] , [address] [place] [address] [id number] 0 04/03 CBC w/ auto diff MPV fL 9.5 13.4 9.7 FINAL Betty Lanier [facility] , [address] [place] [address] [id number] 0 04/03 CBC w/ auto diff RDW % 11.4 16.1 14.70 FINAL Betty Lanier [facility] , [address] [place] [address] [id number] 0 04/03 Magne sium, mg/dL mg/dL 1.6 2.3 1.8 FINAL Betty Lanier * [facility] , [address] [facility] [id number] 0 04/03 CMP Album in g/dL 3.5 5.0 3.1 Low FINAL Betty Lanier * [facility] , [address] [facility] [id number] 0 04/03 CMP Alkal ine phosp hatas e U/L 36.0 125.0 97 FINAL Betty Lanier * [facility] , [address] [facility] [id number] 0 04/03 CMP ALT/S GPT U/L 0.0 34.0 11 FINAL Betty Lanier * [facility] , [address] [facility] [id number] 0 04/03 CMP AST/S GOT U/L 14.0 36.0 27 FINAL Betty Lanier * [facility] , [address] [facility] [id number] 0 04/03 CMP BUN mg/dL 7.0 17.0 21.0 High FINAL Betty Lanier * [facility] , [address] [facility] [id number] 0 04/03 CMP Calci um mg/dL 8.4 10.2 8.3 Low FINAL Betty Lanier * [facility] , [address] [facility] [id number] 0 04/03 CMP Chlor mando mmol/L 96.0 107.0 100 FINAL Betty Lanier * [facility] , [address] [facility] [id number] 0 04/03 CMP CO2 mmol/L 22.0 30.0 [...] hour stability window. FINAL Betty Lanier * [facility] , [address] [facility] [address] [facility] [id number] 0 04/03 CMP Creat inine mg/dL 0.66 1.25 0.80 FINAL Betty Lanier * [facility] , [facility] [address] [id number] 0 04/03 CMP GFR estim ate ml/min /1.73m ^2 72.5 GFR is calculate d using the CKD-EPI equation. FINAL Betty Lanier * [facility] , [address] [facility] [address] [id number] 0 04/03 CMP Gluco se mg/dL 74.0 100.0 234 High FINAL Betty Lanier * [facility] , [facility] [address] [id number] 0 04/03 CMP Potas sium mmol/L 3.5 5.1 5.1 FINAL Betty Lanier * [facility] , [address] [address] [id number] 0 04/03 CMP Sodiu m mmol/L 137.0 145.0 129 Low FINAL Betty Lanier * [facility] , [address] [facility] [address] [id number] 0 04/03 CMP Bilir ubin, total mg/dL 0.2 1.3 0.4 FINAL Betty Lanier * [facility] , [address] [address] [id number] 0 04/03 CMP Total prote in g/dL 6.3 8.2 6.3 FINAL Betty Lanier * [facility] , [address] [facility] [address] [facility] [id number] Medications Date Name Route Dose Frequency [...] Active Ovarian cancer Active Notes Section * TOURIST ESCORT Onc Consult Note GYNECOLOGIC ONCOLOGY CONSULT Patient [...] me directly with any concerns at my [place] office at . ??Again, I appreciate your referral of this delightful patient and your support of our practice.?? Sincerely Yours, Betty Lanier M.D. [facility] Operating at [facility] Reason for Consult:* Primary diagnosis: Metastatic ovarian cancer?? * Prior treatments: Partial hysterectomy?? * Genetic testing: Not inidctaed History of Present Illness (Line Worker Oncology): This is a??delightful patient who was diagnosed with a advanced ovarian cancer on 331 after biopsy in [place]. ??She had difficulties getting established with an [...] last bowel movement was yesterday. Genetic Testing (Line Worker Oncology): Not indicated?? Review of Systems: A complete 14-point review of systems is negative except as noted in the above history of present illness. 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 (Date: 04/03/2025) Physical Exam (Line Worker Oncology): DISCOVERY MANAGER/General: ??Alert and oriented x 3. The patient [...] secondary to??surgical removal, theleft adnexa is markedly enlarged??Tour Counselor is present during exam. Muscles and Joints: ??Extremities are warm and well perfused without edema or calf tenderness. Laboratory Data: ? Imaging: INDICATION: act hx of ovarian cancer. TECHNIQUE: CT chest, abdomen and pelvis acquired 80 cc [id number] IV contrast. COMPARISON: None. FINDINGS: CHEST: Cardiovascular [...] * Type 2 diabetes Assessment & Plan (Line Worker Oncology): This is a??delightful patient who was diagnosed with a advanced ovarian cancer on 331 after biopsy in [place]. ??She had difficulties getting established with an [...] 1 of whom presents via phone from [place].?? I discussed with them that??carboplatin and paclitaxel [...] spent greater than an hour in direct [id number] patient consultation, conversation and coordination of care.?? That??patient required an external historian and panman throughout. Pain Care Management: Pain Scale: 0 Patient Care needs: Depressions Status: Was screened; Outcome positive: No; Screening Date: 04/03/2025; Screening Tool:PRIME SANCHES-PHQ2; Total depression score: 1 Smoking Status: Smoking Tobacco : Former smoker, stopped smokin11/2024; Smokeless Tobacco : Never used smokeless tobacco; Vaping : Never vaped Orders: Labs:??* 04/03/2025, CA 125 panel, Perform Date: 04/03/2025, Perform Location: [place] * 04/03/2025, CBC w/ auto diff, Perform Date: 04/03/2025, Perform Location: [place] * 04/03/2025, CMP, Perform Date: 04/03/2025, Perform Location: [place] * 04/03/2025, Magnesium Panel, Perform Date: 04/03/2025, Perform Location: [place] * 04/03/2025, iSTAT creatinine panel, Perform Date: 04/03/2025, Perform Location: [place] Medications:? Imaging:? Services:??* 04/03/2025, Abdominal paracentesis (procedure), Instructions: Please schedule paracentesis, PerformDate: Start on:??04/03/2025?End by:??04/03/2025? (PRN) * 04/03/2025, Palliative care consult, Perform Date: 04/15/2025 * 04/03/2025, Pelvic examination (List separately in addition to code for primary procedure), PerformDate: 04/03/2025 * 04/03/2025, Port placement, Perform Date: 04/15/2025 * 04/03/2025, RTC WARP KNITTER/PA and infusion, Perform Date: 04/15/2025 * 04/03/2025, RTC chemo teaching, Instructions: RTC - RN, Chemo teach, Perform Date: 04/15/2025 * 04/03/2025, Refer to [facility] former [facility], Instructions: Hi calorie low residue, Perform Date: 04/15/2025 Regimens: ?= Betty Lanier MD Copy to: FAX Faraz Rodriguez MD (Referring) ?? Electronically signed by Betty Lanier MD 04/03/2025 11:20 CDT
--- OUTSIDE RECORDS SUMMARY | 2025-05-03 12:05 | XMS_ITS | CCD ---
Author Name Interface, [id number] lity Address [address] [facility] [address] [address] Organization [facility] Address [address] [facility] [address] [place] [address] Care Team Providers Care Transit Department Clerk Name Role Phone Yannick SANCHES, Betty Chand Unavailable Allergies and Adverse Reactions Medication/Group Name Reaction Severity Date No known allergies Care Plan Date Type Value 05/03/2025 APPOINTMENT TREATMENT 6 HR 05/03/2025 APPOINTMENT OV 15 MIN 05/03/2025 APPOINTMENT PORT DRAW 15 MIN 04/15/2025 APPOINTMENT PBR 30 MIN 04/15/2025 APPOINTMENT TREATMENT 6 HR 04/15/2025 APPOINTMENT PORT DRAW 15 MIN 04/15/2025 APPOINTMENT OV 30 MIN 04/11/2025 APPOINTMENT OUTSIDE TEST 5 M IN 04/08/2025 APPOINTMENT OUTSIDE TEST 5 M IN 04/08/2025 APPOINTMENT TREATMENT TEACH 60 MIN 04/03/2025 APPOINTMENT LAB 15 MIN 04/03/2025 APPOINTMENT NEW PT CONSULT 4 5 MIN 04/03/2025 LABORDER iSTAT creatinine panel 04/03/2025 LABORDER Magnesium Panel 04/03/2025 LABORDER CBC w/ auto diff 04/03/2025 LABORDER CA 125 panel 04/03/2025 LABORDER CMP 04/03/2025 LABORDER Myriad My Risk ( Blood) 05/03/2025 LABORDER CBC w/ auto diff 05/03/2025 LABORDER iSTAT creatinine panel 05/03/2025 LABORDER CMP 05/03/2025 LABORDER Magnesium Panel Reason for Visit PORT DRAW 15 MIN Encounters Date Name 04/15/2025 Ovarian cancer 04/15/2025 Type 2 diabetes 04/11/2025 Ovarian cancer 04/08/2025 Ovarian cancer 04/08/2025 Ovarian cancer 04/15/2025 PBR 30 MIN 04/11/2025 OUTSIDE TEST 5 MIN 04/08/2025 OUTSIDE TEST 5 MIN 04/08/2025 TREATMENT TEACH 60 M IN Functional Status Date Name Score 04/03/2025 ECOG performance status - grade 2 2 Immunizations Date Name Route Dose Instructions Refusal Reason Stat us Flu vaccine - Adult Patient declined/rejected Not Administered Diagnostic Results Date Type Test Units Lower Limit Upper Limit Result Flag Comments Status Ordered By Specimen Source Lab Address 04/03 CMP Alkal ine phosp hatas e U/L 36.0 125.0 97 FINAL Betty Lanier * [facility] , [address] [facility] [address] [facility] [id number] 0 04/03 CMP ALT/S GPT U/L 0.0 34.0 11 FINAL Betty Lanier * [facility] , [address] [facility] [address] [id number] 0 04/03 CMP Calci um mg/dL 8.4 10.2 8.3 Low FINAL Betty Lanier * [facility] , [address] [facility] [id number] 0 04/03 CMP GFR estim ate ml/min /1.73m ^2 72.5 GFR is calculate d using the CKD-EPI equation. FINAL Betty Lanier * [facility] , [address] [facility] [address] [facility] [id number] 0 04/03 CMP CO2 mmol/L 22.0 30.0 [...] hour stability window. FINAL Betty Lanier * [facility] , [address] [facility] [address] [id number] 0 04/03 CMP Gluco se mg/dL 74.0 100.0 234 High FINAL Betty Lanier * [facility] , [address] [facility] [address] [id number] 0 04/03 CMP Chlor mando mmol/L 96.0 107.0 100 FINAL Betty Lanier * [facility] , [facility] [facility] [address] [id number] 04/03 CMP Total prote in g/dL 6.3 8.2 6.3 FINAL Betty Lanier * [facility] , [facility] [address] [id number] 0 04/03 CMP BUN mg/dL 7.0 17.0 21.0 High FINAL Betty Jacksonrobsonkassandra * [facility] , [facility] [address] [id number] 0 04/03 CMP Creat inine mg/dL 0.66 1.25 0.80 FINAL Betty Lanier * [facility] , [facility] [address] [id number] 0 04/03 CMP AST/S GOT U/L 14.0 36.0 27 FINAL Betty Jacksonrobsonkassandra * [facility] , [address] [facility] [address] [id number] 0 04/03 CMP Album in g/dL 3.5 5.0 3.1 Low FINAL Betty Lanier * [facility] , [facility] [address] [id number] 0 04/03 CMP Bilir ubin, total mg/dL 0.2 1.3 0.4 FINAL Betty Jennfiferarth * [facility] , [facility] [address] [id number] 0 04/03 CMP Sodiu m mmol/L 137.0 145.0 129 Low FINAL Betty Lanier * [facility] , [address] [facility] [address] [facility] [id number] 0 04/03 CMP Potas sium mmol/L 3.5 5.1 5.1 FINAL Betty Lanier * [facility] , [address] [facility] [address] [facility] [id number] 0 04/03 CA 125 panel CA 125 U/ML 0.0 35.0 5610.00 Resulte d with diluted sample High Test performed at [facility] on a [employer] Immunoass ay Analyzer that uses an immunomet adiel immunoass ay technique . Patient testing should not be performed using multiple methodclif corona due to analytica l variation seen between test methodclif corona. FINAL Betty Lanier * [facility] , [address] [facility] [address] [facility] [id number] 0 04/03 CBC w/ auto diff Catina # (ANC) K/uL 1.6 6.6 11.5 High FINAL Betty Lanier [facility] , [address] [place] [address] [id number] 04/03 CBC w/ auto diff IG % % 0.0 0.5 0.6 High FINAL Betty Lanier [facility] , [address] [place] [address] [id number] 0 04/03 CBC w/ auto diff MO # K/uL 0.2 1.3 0.8 FINAL Betty Lanier [facility] , [address] [place] [address] [id number] 0 04/03 CBC w/ auto diff MCV fL 80.0 104.0 82.5 FINAL Betty Lanier [facility] , [address] [place] [address] [id number] 0 04/03 CBC w/ auto diff IG # K/uL 0.0 0.03 0.09 High FINAL Betty Lanier [facility] , [address] [place] [address] [id number] 0 04/03 CBC w/ auto diff MO % % 6.0 15.0 5.6 Low FINAL Betty Lanier [facility] , [address] [place] [address] [id number] 0 04/03 CBC w/ auto diff EO # K/uL 0.0 0.6 0.1 FINAL Betty Lanier [facility] , [address] [place] [address] [id number] 0 04/03 CBC w/ auto diff EO % % 0.0 7.0 0.8 FINAL Betty Lanier [facility] , [address] [place] [address] [id number] 0 04/03 CBC w/ auto diff RBC M/uL 3.9 5.1 4.51 FINAL Betty Lanier [facility] , [address] [place] [address] [id number] 0 04/03 CBC w/ auto diff MPV fL 9.5 13.4 9.7 FINAL Betty Lanier [facility] , [address] [place] [address] [id number] 0 04/03 CBC w/ auto diff WBC K/uL 3.0 8.9 14.7 High FINAL Betty Lanier [facility] , [address] [place] [address] [id number] 0 04/03 CBC w/ auto diff PLT K/uL 113.0 364.0 481 High FINAL Betty Lanier [facility] , [address] [place] [address] [id number] 0 04/03 CBC w/ auto diff BA % % 0.0 2.0 0.4 FINAL Betty Lanier [facility] , [address] [place] [address] [id number] 0 04/03 CBC w/ auto diff BA # K/uL 0.0 0.2 0.1 FINAL Betty Lanier [facility] , [address] [place] [address] [id number] 0 04/03 CBC w/ auto diff HGB g/dL 11.3 15.2 12.0 FINAL Betty Lanier [facility] , [address] [place] [address] [id number] 0 04/03 CBC w/ auto diff RDW % 11.4 16.1 14.70 FINAL Betty Lanier [facility] , [address] [place] [address] [id number] 0 04/03 CBC w/ auto diff LY % % 14.0 41.0 14.1 FINAL Betty Lanier [facility] , [address] [place] [address] [id number] 0 04/03 CBC w/ auto diff LY # K/uL 0.4 3.6 2.1 FINAL Betty Lanier [facility] , [address] [place] [address] [id number] 0 04/03 CBC w/ auto diff MCH pg 26.0 35.0 26.6 FINAL Betty Lanier [facility] , [address] [place] [address] [id number] 0 04/03 CBC w/ auto diff MCHC g/dL 30.0 35.0 32.3 FINAL Betty Lanier [facility] , [address] [place] [address] [id number] 0 04/03 CBC w/ auto diff NRBC % #/100W BC 0.0 0.2 0.0 FINAL Betty Lanier [facility] , [address] [place] [address] [id number] 0 04/03 CBC w/ auto diff HCT % 35.0 48.0 37.2 FINAL Betty Lanier [facility] , [address] [place] [address] [id number] 0 04/03 CBC w/ auto diff Catina % % 43.0 74.0 78.5 High FINAL Betty Lanier [facility] , [address] [place] [address] [id number] 0 04/03 Magne sium, mg/dL mg/dL 1.6 2.3 1.8 FINAL Betty Lanier * [facility] , [address] [facility] [address] [facility] [id number] 0 04/03 iSTAT creat inine panel Creat inine , iSTAT mg/dl 0.6 1.3 0.9 FINAL Betty Lanier [facility] , [address] [place] [address] [id number] 0 03/27 Misc other lab See attache mendoza Medications Date Name Route Dose Frequency Instructions Start Date End Date Status Ondansetron Oral q6h active Aspirin Oral daily acti ve Metoprolol Oral (Tartrate) daily active Promethazine Oral q12 prn active 2024 ondansetron 8 MG Disintegrating Oral Tablet orally 1.0 tablet,disin tegrating every 8 hours 2024 active 2024 lidocaine 25 MG/ML / prilocaine 25 MG/ML Topical Cream topically 1.0 application once 2024 active Problems Diagnosis Status Date of Diagnosis Resolution Date Type 2 diabetes Active Ovarian cancer Active Procedures Date Category Name Instructions Status 04/03/2025 Physician Order Referral to [facility] work No insurance. Has [place] insurance but no [place]. CM sent to . Ordered 04/03/2025 Physician Order Pelvic examinati on (List separately in addition to code for primary procedure) Administered 04/08/2025 Physician Order RTC chemo teaching RTC - RN, Ch emo teach Ordered 04/08/2025 Physician Order Abdominal paracentesis (procedure) Please schedule paracentesisLeft sided Therapeutic paracentesis. If over 4L removed, need replacement of 25% albumin, 40 grams IV following paracentesis. Ordered 04/11/2025 Physician Order Port placement Order ed 04/15/2025 Physician Order Refer to blind cleaner Hi calorie l ow residue Ordered 04/15/2025 Physician Order Palliative care consult Ordered 05/03/2025 Physician Order RTC AIRCRAFT CHARTER DISPATCHER/PA and infusion CArboplatin and taxol Ordered Social History Date Name Value 04/03/2025 Smoking Status Former smoker 04/30/2025 Sex Female Visits Date Type Value 05/03/2025 PORT DRAW 15 MIN 05/03/2025 TREATMENT 6 HR 05/03/2025 OV 15 MIN Vital Signs Date Type Value 04/03/2025 Body Temperature 96.90 04/03/2025 Heart Beat 92.00 04/03/2025 Respiratory Rate 16.00 04/03/2025 Oxygen Saturation 95.00 04/03/2025 BSA 1.51 04/03/2025 Pain Scale 0.00 04/03/2025 Weight 114.40 04/03/2025 Height 62.00 04/03/2025 BMI 20.92 04/03/2025 Intravascular Systolic 118 04/03/2025 Intravascular Diastolic 70 Notes Section * CIRCUS ROUSTABOUT Onc Consult Note GYNECOLOGIC ONCOLOGY CONSULT Patient [...] me directly with any concerns at my [place] office at . ?Again, I appreciate your referral of this delightful patient and your support of our practice.? Sincerely Yours, Betty Lanier M.D. Gynecologic Oncology [facility] Operating at [facility] Reason for Consult:* Primary diagnosis: Metastatic ovarian cancer? * Prior treatments: Partial hysterectomy? * Genetic testing: Not inidctaed History of Present Illness ([facility]): This is a?delightful patient who was diagnosed with a advanced ovarian cancer on 331 after biopsy in [place]. ?She had difficulties getting established with an oncologist, recently relocatedhere, underwent paracentesis confirming the same on?6 3, and is referred here for further care and management. The patient's biggest concern today is that the fluid accumulating in her abdomen is keeping her from eating.? She is having bowel function. ?She is able to eat but throws up if she has a largemeal.? Her last bowel movement was yesterday. Genetic Testing ([facility]): Not indicated? Review of Systems: A complete 14-point review of systems is negative except as noted in the above history of present illness. 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 (Date: 04/03/2025) Physical Exam ([facility]): AMBULANCE DISPATCHER/General: ?Alert and oriented x 3. The patient appears comfortable, in no acute distress. HEENT: ?Head normocephalic, atraumatic. ?Extraocular movements intact on confrontation No conjunctivitis. ?No evidence of erythema. ? Lymphatics: ?Cervical, supraclavicular, infraclavicular, axillary and inguinal nodes not palpable. Abdomen: ?Bowel sounds present and active. Soft, nontender, nondistended with no hepatosplenomegaly or masses noted. Pelvic: Examination of the external genitalia reveals normal vulvar, perianal, perineal or urethralmeatal lesions. Bartholin's glands are normal. Speculum exam reveals no bladder, urethral or vaginal lesions, and a grossly normal cervix. ?No?uterus is palpable secondary to?surgical removal, the left adnexa is markedly enlarged?Dry Box Operator is present during exam. Muscles and Joints: ?Extremities are warm and well perfused without edema or calf tenderness. Laboratory Data: ? Imaging: INDICATION: act hx of ovarian cancer. TECHNIQUE: CT chest, abdomen and pelvis acquired 80 cc [id number] IV contrast. COMPARISON: None. FINDINGS: CHEST: Cardiovascular [...] No suspicjouS bone lesio ns. Unremarkable for age.?ABDOMEN AND PELVIS: Multilevel mild motion artifatt liMiting fine detail evaluation. Liver: Ilkiefined subcapsular hypodensity a?perry the anterior aspect of hepatic .segment 5 measuring approximately 1.7 cm (). Gallbladder and bile.ducts: Unremarkable. Pancreas: Unremarkable.. Spleen: Unremarkable. Adrenal glands: Unremarkable. Kidneys: Right renal cysts and other bilateral subcentimeter cortical hypodenSities, too small to characterize. No hydroureteronephrosis or evident urolithiaSis. GI tract: Small to moderate Ying hernia with a patulous distal esophagus containing small volume fluid. Bowel is normal in caliber without evidence of obstruction. Vascu lar structures: Unremarkable for age. Lymph nodes: No evident lymphadenopathy by size criteria. Peritoneum/Retroperitoneum/Abdominal Wall: Extensive peritoneal hyperenhancing nodularity, most pronounced in the right subdiaphragmatic region (for example, 09/07). There is also enhancing nodularity along the hepatic falciform ligament, also compatib?e with peritoneal imp?ants. Large volumeascites. No:free air. Pelvic Organs: Extensive irregularity of the adnexae with a large left adnexal cystic mass with an anterior wall that is poorly visualized, but measures approXimately 9.5 cm (). Thickened endometrium measuring approximate 1.1 cm () [...] Small to moderate right and trace left pleura? effusions with subjacent basilar consolidations, at least partially reflecting atelectasis. No definite suspicious pleural nodularity or enhancement to indicate pleural carcinomatosis. 4. III-defined subcapsular hypodensity along the anterior aspect of hepatic segment .5 measuring approximately 1.7 cm, nonspecific, though could reflect a metastasis. Problems: * Ovarian cancer * Type 2 diabetes Assessment & Plan ([facility]): This is a?delightful patient who was diagnosed with a advanced ovarian cancer on 331 after biopsy in [place]. ?She had difficulties getting established with an oncologist, recently relocatedhere, underwent paracentesis confirming the same on?6 3, and is referred here for further care and management. The patient's biggest concern today is that the fluid accumulating in her abdomen is keeping her from eating.? She is having bowel function. ?She is able to eat but throws up if she has a largemeal.? Her last bowel movement was yesterday. Given the patient's personal history of ovarian cancer as well as extensive family history of ovarian and breast cancer?genetic testing is indicated and is ordered today. MyRisk is a genetic test that evaluates 48 genes to elucidate risk of developing 11 different types of hereditary cancers including breast, colon and ovarian. When coupled with RiskScore?, it can assess five-year and lifetime risk of developing breast cancer. I counseled the patient that this is is performed via blood orsaliva sample, and that we commonly collect it with her other labs, and results are available within four weeks. In regards to her therapy, today I discussed with her that based on her advanced cancer as well as her age,?and pleural effusions, I recommend proceeding on with induction chemotherapy with carboplatin and Taxol chemotherapy.? I extensively discussed this with the patient, her daughter, and her 2 granddaughters, 1 of whom presents via phone from [place].? I discussed with them that?carboplatin and paclitaxel are 2 of the most common treatments for adenocarcinomas. ?It is used in many different cancers. ?It is given in a chemotherapy unit, intravenously, and typically through a port. ?Each cycle is by 21 days. Although it can have serious and life-threatening side effects, it is commonly tolerated extremely well. ?Common side effects include weakened immunity over time, anemia, neutropenia, and alopecia. ?Over time patients can develop peripheral neuropathy, and fatigue is common.? The symptoms are more profound in patients in their 80s, and, as we continue through treatment, the patient may want to transition away from chemotherapy to pallia tive care.? The patient is?adamant that she would like to undergo therapy,?but her family is open to the idea that she may not tolerate treatment as well as she anticipates. In regards to her fluid burden, she is not clinically obstructed, her most CT?recent CT scan shows no evidence of obstruction, and there is stool in the vault.? This said she is having extreme difficulty tolerating foods, likely secondary to tumor ileus. ?Therefore I provided them with instructions on a high calorie low residue diet to assist him with that going forward.? Paracentesisis ordered PRN and the patient would like to pursue one additional paracentesis prior to chemo.? I addressed with the patient extensively that palliative care with hospice is a option that would allow better pain control immediately for her, and we would be able to place an indwelling?Pleurx catheter to assist her going forward, she is insistent that she would like to at least try to pursuechemotherapy. Today I spent greater than an hour in direct [id number] patient consultation, conversation and coordination of care.? That?patient required an external historian and bicycle courier throughout. Pain Care Management: Pain Scale: 0 Patient Care needs: Depressions Status: Was screened; Outcome positive: No; Screening Date: 04/03/2025; Screening Tool: MD-PHQ2; Total depression score: 1 Smoking Status: Smoking Tobacco : Former smoker, stopped smokin11/2024; Smokeless Tobacco : Never used smokeless tobacco; Vaping : Never vaped Orders: Labs:?* 04/03/2025, CA 125 panel, Perform Date: 04/03/2025, Perform Location: [place] * 04/03/2025, CBC w/ auto diff, Perform Date: 04/03/2025, Perform Location: [place] * 04/03/2025, CMP, Perform Date: 04/03/2025, Perform Location: [place] * 04/03/2025, Magnesium Panel, Perform Date: 04/03/2025, Perform Location: [place] * 04/03/2025, iSTAT creatinine panel, Perform Date: 04/03/2025, Perform Location: [place] Medications:? Imaging:? Services:?* 04/03/2025, Abdominal paracentesis (procedure), Instructions: Please schedule paracentesis, PerformDate: Start on:?04/03/2025?End by:?04/03/2025? (PRN) * 04/03/2025, Palliative care consult, Perform Date: 04/15/2025 * 04/03/2025, Pelvic examination (List separately in addition to code for primary procedure), PerformDate: 04/03/2025 * 04/03/2025, Port placement, Perform Date: 04/15/2025 * 04/03/2025, RTC AIRCRAFT CHARTER DISPATCHER/PA and infusion, Perform Date: 04/15/2025 * 04/03/2025, RTC chemo teaching, Instructions: RTC - RN, Chemo teach, Perform Date: 04/15/2025 * 04/03/2025, Refer to blind cleaner, Instructions: Hi calorie low residue, Perform Date: 04/15/2025 Regimens: ?= Betty Lanier MD Copy to: ARTURO Rodriguez MD (Referring) ? Electronically signed by Betty Lanier MD 04/03/2025 11:20 CDT
--- OUTSIDE RECORDS SUMMARY | 2025-05-03 12:05 | XMS_ITS | CCD ---
Author Name Interface, [id number] lity Address [facility] [facility] [address] [place] [address] [facility] Address [address] [facility] [address] [place] [address] Care Team Providers Care Pasteuriser Operator Name Role Phone Yannick SANCHES, Betty Chand Unavailable Allergies and Adverse Reactions Care Plan Reason for Visit Encounters Functional Status Immunizations Diagnostic Results Medications Problems Procedures Social History Visits Vital Signs Notes Section
[2025-05-03 12:22] VITALS: BP 128/76; PULSE 105; RESP 18; TEMP 36.2; O2SAT 95; BMI 19.9
--- NOTE | 2025-05-03 12:42 | ED.GENADULT ---
HPI - General Adult General Chief complaint: Unspecified Complaint, Adult Stated complaint: potassium is high Time Seen by Provider: 05/03/25 12:04 History of Present Illness HPI narrative: This 85-year-old female comes in with family members who report generalized weakness. She has ovarian cancer with widespread metastatic disease and was undergoing chemotherapy but this was discontinued because she was weak and not eating. She was recently placed on hospice care however apparently this has been suspended as she was in [facility] and again was at clinic today and noted to have low sodium at 120. I did speak with family members who are interested in having her sodium corrected if possible. The longer term plan however is to continue with hospice care. Related Data Previous Rx's ?Medication ?Instructions ?Recorded hydroxyzine HCl 25 mg tablet 25 mg PO TID PRN itching #60 tabs 04/02/25 pantoprazole 40 mg tablet,delayed 40 mg PO QDAY #90 tabs 04/02/25 release blood-glucose sensor (FreeStyle #6 ea 05/03/25 Martine 3 Sensor device) insulin glargine 100 unit/mL (3 8 unit (0.08 mL) subcut QAM #15 mL 05/03/25 mL) subcutaneous pen (Lantus Solostar U-100 Insulin) Allergies Allergy/AdvReac Type Severity Reaction Status Date / Time No Known Drug Allergies Allergy Verified 05/03/25 12:21 Review of Systems Status of ROS: Reports: unobtainable due to medical condition [facility] Medical History (Updated 05/03/25 @ 15:17 by Diogenes Joe MD) Insulin dependent diabetes mellitus type IA ?E10.9 - Type 1 diabetes mellitus without complications (ICD-10) Diabetes ?E11.9 - Type 2 diabetes mellitus without complications (ICD-10) Anemia ?D64.9 - Anemia, unspecified (ICD-10) GERD (gastroesophageal reflux disease) ?K21.9 - Gastro-esophageal reflux disease without esophagitis (ICD-10) Diabetic neuropathy ?E11.40 - Type 2 diabetes mellitus with diabetic neuropathy, unspecified (ICD-10) Hyperlipidemia ?E78.5 - Hyperlipidemia, unspecified (ICD-10) Chronic back pain ?M54.9 - Dorsalgia, unspecified (ICD-10) ?G89.29 - Other chronic pain (ICD-10) Poorly controlled type 2 diabetes mellitus ?E11.65 - Type 2 diabetes mellitus with hyperglycemia (ICD-10) Surgical History (Updated 03/25/25 @ 22:50 by Divya Rodriguez MD) History of lumbar fusion ?Z98.1 - Arthrodesis status (ICD-10) History of partial hysterectomy ?Z90.711 - Acquired absence of uterus with remaining cervical stump (ICD-10) Social History (Updated 03/26/25 @ 12:30 by Jazmine Edwards MD) Narrative: She is a nonsmoker. She drinks alcohol rarely. She has a many children and grandchildren who live in [place]. What is your current living situation?: I presently have a place to live Problems where you live: no known problems Problems where you live details: no known problems In the past 12 months, utilities in danger of being shut off: no In past 12 months, lack of transportation kept you from medical appts, meetings, work, or getting things needed for daily living: no In the past 12 mos, have been you worried that your food would run out before you had money to buy more?: never true In the past 12 mos, the food you bought just didn't last and you didn't have money to buy more?: never true Smoking Status: Current every day smoker What tobacco products do you use: cigarettes Do you use any of these nicotine containing products: None Second hand tobacco smoke exposure: Yes How often do you have a drink containing alcohol: never How often do you have six or more drinks on one occasion: Never AUDIT-C Alcohol total score: 0 Non-prescribed substance use: denies use Caffeine: Yes (Coffee) How often does anyone, including family, friends and others, physically hurt you: never How often does anyone, including family, friends and others, insult or talk down to you: never How often does anyone, including family, friends and others, threaten you with harm: never How often does anyone, including family, friends and others, scream or curse at you: never service: No Exam Narrative: Exam Narrative: Constitutional: Cachectic. HEENT: Normocephalic, atraumatic. Neck: Normal range of motion. Nontender. Supple. Heart: Regular. No murmurs. Tachycardia. Intact distal pulses. Lungs: Clear to auscultation. No wheezes, rhonchi, or rales. Abdomen: Distended abdomen. Genitalia: Deferred. Extremities: No injury. Skin: Intact. No rash. Warm. No erythema or pallor. Neurologic: No altered sensation. Nursing notes and vitals signs are reviewed. Const: Vital Signs, click to edit/add: Vital Signs - 24 hr 05/03/25 12:22 05/03/25 14:10 Temperature 97.2 F L 98.3 F Pulse Rate [Pulse Oximeter] 105 H Respiratory Rate 18 Blood Pressure [Ri ght Upper Arm] 128/76 Pulse Oximetry 95 Oxygen Delivery Me thod Room Air Course Vital Signs Vital signs: Initial Vital Signs Temperature 97.2 F L 05/03/25 12:22 Temperature Source Temporal Artery Scan 05/03/25 12:22 Pulse Rate 105 H 05/03/25 12:22 Respiratory Rate 18 05/03/25 12:22 Blood Pressure 128/76 05/03/25 12:22 Blood Pressure Mean 93 05/03/25 12:22 Pulse Oximetry 95 05/03/25 12:22 Oxygen Delivery Method Room Air 05/03/25 12:22 Vital Signs Temperature 97.2 F L 05/03/25 12:22 Pulse Rate 105 H 05/03/25 12:22 Respiratory Rate 18 05/03/25 12:22 Blood Pressure 128/76 05/03/25 12:22 Pulse Oximetry 95 05/03/25 12:22 Oxygen Delivery Method Room Air 05/03/25 12:22 Temperature 98.3 F 05/03/25 14:10 Pulse Rate 105 H 05/03/25 12:22 Respiratory Rate 18 05/03/25 12:22 Blood Pressure 128/76 05/03/25 12:22 Pulse Oximetry 95 05/03/25 12:22 Oxygen Delivery Method Room Air 05/03/25 12:22 Medications Administered Medications: Discontinued Medications Generic Name Dose Route Start Last Admin Trade Name Freq PRN Reason Stop Dose Admin Sodium Chloride 500 mls @ 500 mls/hr 05/03/25 12:40 05/03/25 14:05 0.9 % Sodium Chloride 500 Ml IV 05/03/25 13:39 Infused .Q1H ONE Infusion Medical Decision Making MDM Narrative Medical decision making narrative: This patient comes in with family members. Apparently there was initiation of hospice care for ovarian cancer with metastatic disease but the patient did go to a clinic appointment today and was noted to have hyponatremia. She then came here for treatment. I a stated that hospice care will need to be suspended at least for inpatient treatment of this hyponatremia. Other options would be to try to treat orally and resume hospice care. A hospice nurse did come and speak with family members in this regard and family members tell me that the hospice care can be suspended until after the hospitalization for treating her hyponatremia. The patient's family also understands that it is the cancer condition that is causing her hyponatremia. The patient and family members wish to have her admitted here. I did speak with the hospitalist on-call, Yoselin Thrasher, who is reluctant to admit the patient for this purpose. I did speak again with family members who are unified in seeking IV treatment of her hyponatremia. They have reasonable expectations in this regard with understanding that the hyponatremia is coming from the cancer condition. They also understand that her cancer is best treated with palliative care. They plan to resume that and probably with hospice care. Discharge Plan Discharge Clinical Impression: Hyponatremia, Primary cancer of ovary with widespread metastatic disease Patient Disposition: Admitted As Observation Condition: Unchanged
[2025-05-03] MEDS: 0.9 % SODIUM CHLORIDE 500 ML 500 ML IV ×2 (12:56→15:57)
--- OUTSIDE RECORDS SUMMARY | 2025-05-03 13:01 | XMS_ITS ---
Author Name Interface, [id number] lity Address [address] [place] [address] [address] [address] Organization [facility] Address [facility] [address] [address] Allergies and Adverse Reactions Medication/Group Name Reaction [...] with diluted sample High Test performed at [facility] on a Fanzo 7600 Immunoass ay Analyzer that uses an immunomet adiel immunoass ay technique . Patient testing should not be performed using multiple methodclif corona due to analytica l variation seen between test methodclif corona. FINAL Betty Lanier * [facility] , [facility]0 [facility] [address] [facility] [id number] 0 04/03 iSTAT creat inine panel Creat inine , iSTAT mg/dl 0.6 1.3 0.9 FINAL Betty Lanier [facility] , [address] [place] [address] [id number] 0 04/03 iSPARIT zafarat inine panel GFR estim ate ml/min /1.73m ^2 63.0 GFR is calculate d using the CKD-EPI equation. FINAL Betty Lanier [facility] , [address] [place] [address] [id number] 0 04/03 CBC w/ auto diff WBC K/uL 3.0 8.9 14.7 High FINAL Betty Lanier [facility] , [address] [place] [address] [id number] 04/03 CBC w/ auto diff HGB g/dL 11.3 15.2 12.0 FINAL Betty Lanier [facility] , [address] [place] [address] [id number] 04/03 CBC w/ auto diff PLT K/uL 113.0 364.0 481 High FINAL Betty Lanier [facility] , [address] [place] [address] [id number] 0 04/03 CBC w/ auto diff Catina # (ANC) K/uL 1.6 6.6 11.5 High FINAL Betty Lanier [facility] , [address] [place] [address] [id number] 0 04/03 CBC w/ auto diff Catina % % 43.0 74.0 78.5 High FINAL Betty Lanier [facility] , [address] [place] [address] [id number] 0 04/03 CBC w/ auto diff IG % % 0.0 0.5 0.6 High FINAL Betty Lanier [facility] , [address] [place] [address] [id number] 0 04/03 CBC w/ auto diff IG # K/uL 0.0 0.03 0.09 High FINAL Betty Lanier [facility] , [address] [place] [address] [id number] 0 04/03 CBC w/ auto diff LY % % 14.0 41.0 14.1 FINAL Betty Lanier [facility] , [address] [place] [address] [id number] 0 04/03 CBC w/ auto diff MO % % 6.0 15.0 5.6 Low FINAL Betty Lanier [facility] , [address] [place] [address] [id number] 0 04/03 CBC w/ auto diff EO % % 0.0 7.0 0.8 FINAL Betty Lanier [facility] , [address] [place] [address] [id number] 0 04/03 CBC w/ auto diff BA % % 0.0 2.0 0.4 FINAL Betty Lanier [facility] , [address] [place] [address] [id number] 0 04/03 CBC w/ auto diff LY # K/uL 0.4 3.6 2.1 FINAL Betty Lanier [facility] , [address] [place] [address] [id number] 0 04/03 CBC w/ auto diff MO # K/uL 0.2 1.3 0.8 FINAL Betty Lanier [facility] , [address] [place] [address] [id number] 0 04/03 CBC w/ auto diff EO # K/uL 0.0 0.6 0.1 FINAL Betty Lanier [facility] , [address] [place] [address] [id number] 0 04/03 CBC w/ auto diff BA # K/uL 0.0 0.2 0.1 FINAL Betty Lanier [facility] , [address] [place] [address] [id number] 0 04/03 CBC w/ auto diff NRBC % #/100W BC 0.0 0.2 0.0 FINAL Betty Lanier [facility] , [address] [place] [address] [id number] 0 04/03 CBC w/ auto diff RBC M/uL 3.9 5.1 4.51 FINAL Betty Lanier [facility] , [address] [place] [address] [id number] 0 04/03 CBC w/ auto diff HCT % 35.0 48.0 37.2 FINAL Betty Lanier [facility] , [address] [place] [address] [id number] 0 04/03 CBC w/ auto diff MCV fL 80.0 104.0 82.5 FINAL Betty Lanier [facility] , [address] [place] [address] [id number] 0 04/03 CBC w/ auto diff MCH pg 26.0 35.0 26.6 FINAL Betty Lanier [facility] , [address] [place] [address] [id number] 0 04/03 CBC w/ auto diff MCHC g/dL 30.0 35.0 32.3 FINAL Betty Lanier [facility] , [address] [place] [address] [id number] 0 04/03 CBC w/ auto diff MPV fL 9.5 13.4 9.7 FINAL Betty Lanier [facility] , [address] [place] [address] [id number] 0 04/03 CBC w/ auto diff RDW % 11.4 16.1 14.70 FINAL Betty Lanier [facility] , [address] [place] [address] [id number] 0 04/03 Magne sium, mg/dL mg/dL 1.6 2.3 1.8 FINAL Betty Lanier * [facility] , [address] [facility] [id number] 0 04/03 CMP Album in g/dL 3.5 5.0 3.1 Low FINAL Betty Lanier * [facility] , [address] [facility] [id number] 0 04/03 CMP Alkal ine phosp hatas e U/L 36.0 125.0 97 FINAL Betty Lanier * [facility] , [address] [facility] [id number] 0 04/03 CMP ALT/S GPT U/L 0.0 34.0 11 FINAL Betty Lanier * [facility] , [address] [facility] [id number] 0 04/03 CMP AST/S GOT U/L 14.0 36.0 27 FINAL Betty Lanier * [facility] , [address] [facility] [id number] 0 04/03 CMP BUN mg/dL 7.0 17.0 21.0 High FINAL Betty Lanier * [facility] , [address] [facility] [id number] 0 04/03 CMP Calci um mg/dL 8.4 10.2 8.3 Low FINAL Betty Lanier * [facility] , [address] [facility] [id number] 0 04/03 CMP Chlor mando mmol/L 96.0 107.0 100 FINAL Betty Lanier * [facility] , [address] [facility] [id number] 0 04/03 CMP CO2 mmol/L 22.0 30.0 [...] hour stability window. FINAL Betty Lanier * [facility] , [address] [facility] [address] [facility] [id number] 0 04/03 CMP Creat inine mg/dL 0.66 1.25 0.80 FINAL Betty Lanier * [facility] , [facility] [address] [id number] 0 04/03 CMP GFR estim ate ml/min /1.73m ^2 72.5 GFR is calculate d using the CKD-EPI equation. FINAL Betty Lanire * [facility] , [address] [facility] [address] [id number] 0 04/03 CMP Gluco se mg/dL 74.0 100.0 234 High FINAL Betty Lanier * [facility] , [facility] [address] [id number] 0 04/03 CMP Potas sium mmol/L 3.5 5.1 5.1 FINAL Betty Lanier * [facility] , [address] [facility] [id number] 0 04/03 CMP Sodiu m mmol/L 137.0 145.0 129 Low FINAL Betty Lanier * [facility] , [address] [facility] [address] [id number] 0 04/03 CMP Bilir ubin, total mg/dL 0.2 1.3 0.4 FINAL Betty Lanier * [facility] , [address] [id number] 0 04/03 CMP Total prote in g/dL 6.3 8.2 6.3 FINAL Betty Lanier * [facility] , [address] [facility] [address] [facility] [id number] Medications Date Name Route Dose Frequency [...] Active Ovarian cancer Active Notes Section * 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 ??Again, I appreciate your referral of this delightful patient and your support of our practice.?? Sincerely Yours, Betty Lanier M.D. [facility] Reason for Consult:* Primary diagnosis: Metastatic ovarian cancer?? * Prior treatments: Partial hysterectomy?? * Genetic testing: Not inidctaed History of Present Illness ([facility] Oncology): This is a??delightful patient who was diagnosed with a advanced ovarian cancer on 331 after biopsy in [place]. ??She had difficulties getting established with an [...] last bowel movement was yesterday. Genetic Testing ([facility]ist Oncology): Not indicated?? Review of Systems: A complete 14-point review of systems is negative except as noted in the above history of present illness. 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 (Date: 04/03/2025) Physical Exam ([facility] Orthopedist Oncology): MANAGER EDITORIAL/General: ??Alert and oriented x 3. The patient [...] secondary to??surgical removal, theleft adnexa is markedly enlarged??Communications Instructor is present during exam. Muscles and Joints: ??Extremities are warm and well perfused without edema or calf tenderness. Laboratory Data: ? Imaging: INDICATION: act hx of ovarian cancer. TECHNIQUE: CT chest, abdomen and pelvis acquired 80 cc [id number] IV contrast. COMPARISON: None. FINDINGS: CHEST: Cardiovascular [...] * Type 2 diabetes Assessment & Plan ([facility] Orthopedist Oncology): This is a??delightful patient who was diagnosed with a advanced ovarian cancer on 331 after biopsy in [place]. ??She had difficulties getting established with an [...] 1 of whom presents via phone from [place].?? I discussed with them that??carboplatin and paclitaxel [...] spent greater than an hour in direct [id number] patient consultation, conversation and coordination of care.?? That??patient required an external historian and drum cleaner throughout. Pain Care Management: Pain Scale: 0 Patient Care needs: Depressions Status: Was screened; Outcome positive: No; Screening Date: 04/03/2025; Screening Tool:PRIME SANCHES-PHQ2; Total depression score: 1 Smoking Status: Smoking Tobacco : Former smoker, stopped smokin11/2024; Smokeless Tobacco : Never used smokeless tobacco; Vaping : Never vaped Orders: Labs:??* 04/03/2025, CA 125 panel, Perform Date: 04/03/2025, Perform Location: [place] * 04/03/2025, CBC w/ auto diff, Perform Date: 04/03/2025, Perform Location: [place] * 04/03/2025, CMP, Perform Date: 04/03/2025, Perform Location: [place] * 04/03/2025, Magnesium Panel, Perform Date: 04/03/2025, Perform Location: [place] * 04/03/2025, iSTAT creatinine panel, Perform Date: 04/03/2025, Perform Location: [place] Medications:? Imaging:? Services:??* 04/03/2025, Abdominal paracentesis (procedure), Instructions: Please schedule paracentesis, PerformDate: Start on:??04/03/2025?End by:??04/03/2025? (PRN) * 04/03/2025, Palliative care consult, Perform Date: 04/15/2025 * 04/03/2025, Pelvic examination (List separately in addition to code for primary procedure), PerformDate: 04/03/2025 * 04/03/2025, Port placement, Perform Date: 04/15/2025 * 04/03/2025, RTC SPAR CAP BEVELER/PA and infusion, Perform Date: 04/15/2025 * 04/03/2025, RTC chemo teaching, Instructions: RTC - RN, Chemo teach, Perform Date: 04/15/2025 * 04/03/2025, Refer to cadmium burner, Instructions: Hi calorie low residue, Perform Date: 04/15/2025 Regimens: ?= Betty Lanier MD Copy to: FAX Faraz Rodriguez MD (Referring) ?? Electronically signed by Betty Lanier MD 04/03/2025 11:20 CDT
--- OUTSIDE RECORDS SUMMARY | 2025-05-03 13:01 | XMS_ITS ---
Author Name Interface, [id number] lity Address [address] [place] [address] [address] [address] Organization [facility] Address [facility]0 [facility] [address] [address] Allergies and Adverse Reactions Medication/Group Name Reaction [...] with diluted sample High Test performed at [facility] on a Ali 7600 Immunoass ay Analyzer that uses an immunomet adiel immunoass ay technique . Patient testing should not be performed using multiple methodclif cornoa due to analytica l variation seen between test methodclif corona. FINAL Betty Lanier * [facility] , [facility]0 [facility] [address] [facility] [id number] 0 04/03 iSTAT creat inine panel Creat inine , iSTAT mg/dl 0.6 1.3 0.9 FINAL Betty Lanier [facility] , [address] [place] [address] [id number] 04/03 iSPARIT zafarat inine panel GFR estim ate ml/min /1.73m ^2 63.0 GFR is calculate d using the CKD-EPI equation. FINAL Betty Lanier [facility] , [address] [place] [address] [id number] 0 04/03 CBC w/ auto diff WBC K/uL 3.0 8.9 14.7 High FINAL Betty Lanier [facility] , [address] [place] [address] [id number] 04/03 CBC w/ auto diff HGB g/dL 11.3 15.2 12.0 FINAL Betty Lanier [facility] , [address] [place] [address] [id number] 04/03 CBC w/ auto diff PLT K/uL 113.0 364.0 481 High FINAL Betty Lanier [facility] , [address] [place] [address] [id number] 04/03 CBC w/ auto diff Catina # (ANC) K/uL 1.6 6.6 11.5 High FINAL Betty Lanier [facility] , [address] [place] [address] [id number] 0 04/03 CBC w/ auto diff Catina % % 43.0 74.0 78.5 High FINAL Betty Lanier [facility] , [address] [place] [address] [id number] 0 04/03 CBC w/ auto diff IG % % 0.0 0.5 0.6 High FINAL Betty Lanier [facility] , [address] [place] [address] [id number] 04/03 CBC w/ auto diff IG # K/uL 0.0 0.03 0.09 High FINAL Betty Lanier [facility] , [address] [place] [address] [id number] 0 04/03 CBC w/ auto diff LY % % 14.0 41.0 14.1 FINAL Betty Lanier [facility] , [address] [place] [address] [id number] 04/03 CBC w/ auto diff MO % % 6.0 15.0 5.6 Low FINAL Betty Lanier [facility] , [address] [place] [address] [id number] 0 04/03 CBC w/ auto diff EO % % 0.0 7.0 0.8 FINAL Betty Lanier [facility] , [address] [place] [address] [id number] 04/03 CBC w/ auto diff BA % % 0.0 2.0 0.4 FINAL Betty Lanier [facility] , [address] [place] [address] [id number] 04/03 CBC w/ auto diff LY # K/uL 0.4 3.6 2.1 FINAL Betty Lanier [facility] , [address] [place] [address] [id number] 0 04/03 CBC w/ auto diff MO # K/uL 0.2 1.3 0.8 FINAL Betty Lanier [facility] , [address] [place] [address] [id number] 0 04/03 CBC w/ auto diff EO # K/uL 0.0 0.6 0.1 FINAL Betty Lanier [facility] , [address] [place] [address] [id number] 0 04/03 CBC w/ auto diff BA # K/uL 0.0 0.2 0.1 FINAL Betty Lanier [facility] , [address] [place] [address] [id number] 0 04/03 CBC w/ auto diff NRBC % #/100W BC 0.0 0.2 0.0 FINAL Betty Lanier [facility] , [address] [place] [address] [id number] 0 04/03 CBC w/ auto diff RBC M/uL 3.9 5.1 4.51 FINAL Betty Lanier [facility] , [address] [place] [address] [id number] 0 04/03 CBC w/ auto diff HCT % 35.0 48.0 37.2 FINAL Betty Lanier [facility] , [address] [place] [address] [id number] 0 04/03 CBC w/ auto diff MCV fL 80.0 104.0 82.5 FINAL Betty Lanier [facility] , [address] [place] [address] [id number] 0 04/03 CBC w/ auto diff MCH pg 26.0 35.0 26.6 FINAL Betty Lanier [facility] , [address] [place] [address] [id number] 0 04/03 CBC w/ auto diff MCHC g/dL 30.0 35.0 32.3 FINAL Betty Lanier [facility] , [address] [place] [address] [id number] 0 04/03 CBC w/ auto diff MPV fL 9.5 13.4 9.7 FINAL Betty Lanier [facility] , [address] [place] [address] [id number] 0 04/03 CBC w/ auto diff RDW % 11.4 16.1 14.70 FINAL Betty Lanier [facility] , [address] [place] [address] [id number] 0 04/03 Magne sium, mg/dL mg/dL 1.6 2.3 1.8 FINAL Betty Lanier * [facility] , [address] [facility] [facility] [id number] 0 04/03 CMP Album in g/dL 3.5 5.0 3.1 Low FINAL Betty Lanier * [facility] , [address] [facility] [facility] [id number] 0 04/03 CMP Alkal ine phosp hatas e U/L 36.0 125.0 97 FINAL Betty Lanier * [facility] , [address] [facility] [id number] 0 04/03 CMP ALT/S GPT U/L 0.0 34.0 11 FINAL Betty Lanier * [facility] , [address] [facility] [id number] 0 04/03 CMP AST/S GOT U/L 14.0 36.0 27 FINAL Betty Lanier * [facility] , [address] [facility] [id number] 0 04/03 CMP BUN mg/dL 7.0 17.0 21.0 High FINAL Betty Lanier * [facility] , [address] [facility] [id number] 0 04/03 CMP Calci um mg/dL 8.4 10.2 8.3 Low FINAL Betty Lanier * [facility] , [address] [facility] [id number] 0 04/03 CMP Chlor mando mmol/L 96.0 107.0 100 FINAL Betty Lanier * [facility] , [address] [facility] [facility] [id number] 0 04/03 CMP CO2 mmol/L 22.0 30.0 [...] hour stability window. FINAL Betty Lanier * [facility] , [address] [facility] [address] [facility] [id number] 0 04/03 CMP Creat inine mg/dL 0.66 1.25 0.80 FINAL Betty Lanier * [facility] , [facility]0 [facility] [address] [id number] 0 04/03 CMP GFR estim ate ml/min /1.73m ^2 72.5 GFR is calculate d using the CKD-EPI equation. FINAL Betty Lanier * [facility] , [address] [facility] [address] [id number] 0 04/03 CMP Gluco se mg/dL 74.0 100.0 234 High FINAL Betty Lanier * [facility] , [facility] [address] [id number] 0 04/03 CMP Potas sium mmol/L 3.5 5.1 5.1 FINAL Betty Lanier * [facility] , [address] [id number] 0 04/03 CMP Sodiu m mmol/L 137.0 145.0 129 Low FINAL Betty Lanier * [facility] , [address] [facility] [address] [facility] [address] [id number] 0 04/03 CMP Bilir ubin, total mg/dL 0.2 1.3 0.4 FINAL Betty Lanier * [facility] , [address] [id number] 0 04/03 CMP Total prote in g/dL 6.3 8.2 6.3 FINAL Betty Lanier * [facility] , [address] [facility] [address] [facility] [id number] Medications Date Name Route Dose Frequency [...] Active Ovarian cancer Active Notes Section * INSULATION MANAGER Onc Consult Note GYNECOLOGIC ONCOLOGY CONSULT Patient [...] me directly with any concerns at my [place] office at . ??Again, I appreciate your referral of this delightful patient and your support of our practice.?? Sincerely Yours, Betty Lanier M.D. [facility] Operating at [facility] Reason for Consult:* Primary diagnosis: Metastatic ovarian cancer?? * Prior treatments: Partial hysterectomy?? * Genetic testing: Not inidctaed History of Present Illness ([facility]): This is a??delightful patient who was diagnosed with a advanced ovarian cancer on 331 after biopsy in [place]. ??She had difficulties getting established with an [...] last bowel movement was yesterday. Genetic Testing ([facility]): Not indicated?? Review of Systems: A complete 14-point review of systems is negative except as noted in the above history of present illness. 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 (Date: 04/03/2025) Physical Exam ([facility]): TELEVISION REPORTER/General: ??Alert and oriented x 3. The patient [...] secondary to??surgical removal, theleft adnexa is markedly enlarged??Fish Tender is present during exam. Muscles and Joints: ??Extremities are warm and well perfused without edema or calf tenderness. Laboratory Data: ? Imaging: INDICATION: act hx of ovarian cancer. TECHNIQUE: CT chest, abdomen and pelvis acquired 80 cc [id number] IV contrast. COMPARISON: None. FINDINGS: CHEST: Cardiovascular [...] * Type 2 diabetes Assessment & Plan ([facility]): This is a??delightful patient who was diagnosed with a advanced ovarian cancer on 331 after biopsy in [place]. ??She had difficulties getting established with an [...] 1 of whom presents via phone from [place].?? I discussed with them that??carboplatin and paclitaxel [...] spent greater than an hour in direct [id number] patient consultation, conversation and coordination of care.?? That??patient required an external historian and lean manufacturing engineer throughout. Pain Care Management: Pain Scale: 0 Patient Care needs: Depressions Status: Was screened; Outcome positive: No; Screening Date: 04/03/2025; Screening Tool:PRIME SANCHES-PHQ2; Total depression score: 1 Smoking Status: Smoking Tobacco : Former smoker, stopped smokin11/2024; Smokeless Tobacco : Never used smokeless tobacco; Vaping : Never vaped Orders: Labs:??* 04/03/2025, CA 125 panel, Perform Date: 04/03/2025, Perform Location: [place] * 04/03/2025, CBC w/ auto diff, Perform Date: 04/03/2025, Perform Location: [place] * 04/03/2025, CMP, Perform Date: 04/03/2025, Perform Location: [place] * 04/03/2025, Magnesium Panel, Perform Date: 04/03/2025, Perform Location: [place] * 04/03/2025, iSTAT creatinine panel, Perform Date: 04/03/2025, Perform Location: [place] Medications:? Imaging:? Services:??* 04/03/2025, Abdominal paracentesis (procedure), Instructions: Please schedule paracentesis, PerformDate: Start on:??04/03/2025?End by:??04/03/2025? (PRN) * 04/03/2025, Palliative care consult, Perform Date: 04/15/2025 * 04/03/2025, Pelvic examination (List separately in addition to code for primary procedure), PerformDate: 04/03/2025 * 04/03/2025, Port placement, Perform Date: 04/15/2025 * 04/03/2025, RTC SIGN PAINTER/PA and infusion, Perform Date: 04/15/2025 * 04/03/2025, RTC chemo teaching, Instructions: RTC - RN, Chemo teach, Perform Date: 04/15/2025 * 04/03/2025, Refer to six sigma black trainer, Instructions: Hi calorie low residue, Perform Date: 04/15/2025 Regimens: ?= Betty Lanier MD Copy to: FAX Faraz Rodriguez MD (Referring) ?? Electronically signed by Betty Lanier MD 04/03/2025 11:20 CDT
--- OUTSIDE RECORDS SUMMARY | 2025-05-03 13:01 | XMS_ITS | CCD ---
Author Name Interface, [id number] lity Address [address] [facility] [address] [address] Organization [facility] Address [address] [facility] [address] [place] [address] Care Team Providers Care Control Area Operator Name Role Phone Yannick SANCHES, Betty [...] 36.0 125.0 97 FINAL Betty Lanier * [facility] , [address] [facility] [address] [facility] [id number] 04/03 CMP ALT/S GPT U/L 0.0 34.0 11 FINAL Betty Lanier * [facility] , [address] [facility] [address] [id number] 04/03 CMP Calci um mg/dL 8.4 10.2 8.3 Low FINAL Betty Lanier * [facility] , [address] [facility] [address] [facility] [id number] 0 04/03 CMP GFR estim ate ml/min /1.73m ^2 72.5 GFR is calculate d using the CKD-EPI equation. FINAL Betty Lanier * [facility] , [address] [facility] [address] [facility] [id number] 0 04/03 CMP CO2 mmol/L 22.0 30.0 [...] hour stability window. FINAL Betty Lanier * [facility] , [address] [facility] [address] [id number] 0 04/03 CMP Gluco se mg/dL 74.0 100.0 234 High FINAL Betty Lanier * [facility] , [address] [facility] [address] [id number] 0 04/03 CMP Chlor mando mmol/L 96.0 107.0 100 FINAL Betty Lanier * [facility] , [facility] [address] [id number] 04/03 CMP Total prote in g/dL 6.3 8.2 6.3 FINAL Betty Lanier * [facility] , [facility] [address] [id number] 0 04/03 CMP BUN mg/dL 7.0 17.0 21.0 High FINAL Betty Jacksonrobsonkassandra * [facility] , [facility] [address] [id number] 0 04/03 CMP Creat inine mg/dL 0.66 1.25 0.80 FINAL Betty Lanier * [facility] , [facility] [address] [id number] 04/03 CMP AST/S GOT U/L 14.0 36.0 27 FINAL Betty Jacksonrobsonkassandra * [facility] , [address] [facility] [address] [id number] 04/03 CMP Album in g/dL 3.5 5.0 3.1 Low FINAL Betty Lanier * [facility] , [facility] [address] [id number] 04/03 CMP Bilir ubin, total mg/dL 0.2 1.3 0.4 FINAL Betty Jennifferarth * [facility] , [facility] [address] [id number] 04/03 CMP Sodiu m mmol/L 137.0 145.0 129 Low FINAL Betty Lanier * [facility] , [address] [facility] [address] [facility] [id number] 0 04/03 CMP Potas sium mmol/L 3.5 5.1 5.1 FINAL Betty Lanier * [facility] , [address] [facility] [address] [facility] [id number] 0 04/03 CA 125 panel CA 125 U/ML 0.0 35.0 5610.00 Resulte d with diluted sample High Test performed at [facility] on a Triparazzi0 Immunoass ay Analyzer that uses an immunomet adiel immunoass ay technique . Patient testing should not be performed using multiple methodclif corona due to analytica l variation seen between test methodclif corona. FINAL Betty Lanier * [facility] , [address] [facility] [address] [facility] [id number] 0 04/03 CBC w/ auto diff Catina # (ANC) K/uL 1.6 6.6 11.5 High FINAL Betty Lanier [facility] , [address] [place] [address] [id number] 0 04/03 CBC w/ auto diff IG % % 0.0 0.5 0.6 High FINAL Betty Lanier [facility] , [address] [place] [address] [id number] 0 04/03 CBC w/ auto diff MO # K/uL 0.2 1.3 0.8 FINAL Betty Lanier [facility] , [address] [place] [address] [id number] 0 04/03 CBC w/ auto diff MCV fL 80.0 104.0 82.5 FINAL Betty Lanier [facility] , [address] [place] [address] [id number] 0 04/03 CBC w/ auto diff IG # K/uL 0.0 0.03 0.09 High FINAL Betty Lanier [facility] , [address] [place] [address] [id number] 0 04/03 CBC w/ auto diff MO % % 6.0 15.0 5.6 Low FINAL Betty Lanier [facility] , [address] [place] [address] [id number] 0 04/03 CBC w/ auto diff EO # K/uL 0.0 0.6 0.1 FINAL Betty Lanier [facility] , [address] [place] [address] [id number] 0 04/03 CBC w/ auto diff EO % % 0.0 7.0 0.8 FINAL Betty Lanier [facility] , [address] [place] [address] [id number] 0 04/03 CBC w/ auto diff RBC M/uL 3.9 5.1 4.51 FINAL Betty Lanier [facility] , [address] [place] [address] [id number] 0 04/03 CBC w/ auto diff MPV fL 9.5 13.4 9.7 FINAL Betty Lanier [facility] , [address] [place] [address] [id number] 0 04/03 CBC w/ auto diff WBC K/uL 3.0 8.9 14.7 High FINAL Betty Lanier [facility] , [address] [place] [address] [id number] 0 04/03 CBC w/ auto diff PLT K/uL 113.0 364.0 481 High FINAL Betty Lanier [facility] , [address] [place] [address] [id number] 0 04/03 CBC w/ auto diff BA % % 0.0 2.0 0.4 FINAL Betty Lanier [facility] , [address] [place] [address] [id number] 0 04/03 CBC w/ auto diff BA # K/uL 0.0 0.2 0.1 FINAL Betty Lanier [facility] , [address] [place] [address] [id number] 0 04/03 CBC w/ auto diff HGB g/dL 11.3 15.2 12.0 FINAL Betty Lanier [facility] , [address] [place] [address] [id number] 0 04/03 CBC w/ auto diff RDW % 11.4 16.1 14.70 FINAL Betty Lanier [facility] , [address] [place] [address] [id number] 0 04/03 CBC w/ auto diff LY % % 14.0 41.0 14.1 FINAL Betty Lanier [facility] , [address] [place] [address] [id number] 0 04/03 CBC w/ auto diff LY # K/uL 0.4 3.6 2.1 FINAL Betty Lanier [facility] , [address] [place] [address] [id number] 0 04/03 CBC w/ auto diff MCH pg 26.0 35.0 26.6 FINAL Betty Lanier [facility] , [address] [place] [address] [id number] 0 04/03 CBC w/ auto diff MCHC g/dL 30.0 35.0 32.3 FINAL Betty Lanier [facility] , [address] [place] [address] [id number] 0 04/03 CBC w/ auto diff NRBC % #/100W BC 0.0 0.2 0.0 FINAL Betty Lanier [facility] , [address] [place] [address] [id number] 04/03 CBC w/ auto diff HCT % 35.0 48.0 37.2 FINAL Betty Lanier [facility] , [address] [place] [address] [id number] 0 04/03 CBC w/ auto diff Catina % % 43.0 74.0 78.5 High FINAL Betty Lanier [facility] , [address] [place] [address] [id number] 0 04/03 Magne sium, mg/dL mg/dL 1.6 2.3 1.8 FINAL Betty Lanier * [facility] , [address] [facility] [address] [facility] [id number] 0 04/03 iSTAT creat inine panel Creat inine , iSTAT mg/dl 0.6 1.3 0.9 FINAL Betty Lanier [facility] , [address] [place] [address] [id number] 0 03/27 Misc other lab See attache [...] Category Name Instructions Status 04/03/2025 Physician Order Pelvic examinati on (List separately in addition to code for primary procedure) Administered 04/03/2025 Physician Order Referral to soci al work No insurance. Has [place] insurance but no [place]. CM sent to . Ordered 04/08/2025 Physician Order RTC chemo teaching RTC - RN, Ch emo teach Ordered 04/08/2025 Physician Order Abdominal paracentesis (procedure) Please schedule paracentesisLeft sided Therapeutic paracentesis. If over 4L removed, need replacement of 25% albumin, 40 grams IV following paracentesis. Ordered 04/11/2025 Physician Order Port placement Order ed 04/15/2025 Physician Order Refer to customer success advocate Hi calorie l ow residue Ordered 04/15/2025 Physician Order Palliative care consult Ordered 05/03/2025 Physician Order RTC GASOLINE FINISHER/PA and infusion CArboplatin and taxol Ordered Social [...] 04/03/2025 Intravascular Diastolic 70 Notes Section * [facility] Onc Consult Note GYNECOLOGIC ONCOLOGY CONSULT Patient [...] me directly with any concerns at my [place] office at . ?Again, I appreciate your referral of this delightful patient and your support of our practice.? Sincerely Yours, Betty Lanier M.D. Gynecologic Oncology [facility] Operating at [facility] Reason for Consult:* Primary diagnosis: Metastatic ovarian cancer? * Prior treatments: Partial hysterectomy? * Genetic testing: Not inidctaed History of Present Illness ([facility]): This is a?delightful patient who was diagnosed with a advanced ovarian cancer on 331 after biopsy in [place]. ?She had difficulties getting established with an [...] last bowel movement was yesterday. Genetic Testing ([facility]): Not indicated? Review of Systems: A complete 14-point review of systems is negative except as noted in the above history of present illness. 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 The patient [...] to?surgical removal, the left adnexa is markedly enlarged?Team Leader is present during exam. Muscles and Joints: ?Extremities are warm and well perfused without edema or calf tenderness. Laboratory Data: ? Imaging: INDICATION: act hx of ovarian cancer. TECHNIQUE: CT chest, abdomen and pelvis acquired 80 cc [id number] IV contrast. COMPARISON: None. FINDINGS: CHEST: Cardiovascular [...] * Type 2 diabetes Assessment & Plan ([facility]): This is a?delightful patient who was diagnosed with a advanced ovarian cancer on 331 after biopsy in [place]. ?She had difficulties getting established with an [...] 1 of whom presents via phone from [place].? I discussed with them that?carboplatin and paclitaxel [...] spent greater than an hour in direct [id number] patient consultation, conversation and coordination of care.? That?patient required an external historian and auto driver throughout. Pain Care Management: Pain Scale: 0 Patient Care needs: Depressions Status: Was screened; Outcome positive: No; Screening Date: 04/03/2025; Screening Tool: MD-PHQ2; Total depression score: 1 Smoking Status: Smoking Tobacco : Former smoker, stopped smokin11/2024; Smokeless Tobacco : Never used smokeless tobacco; Vaping : Never vaped Orders: Labs:?* 04/03/2025, CA 125 panel, Perform Date: 04/03/2025, Perform Location: [place] * 04/03/2025, CBC w/ auto diff, Perform Date: 04/03/2025, Perform Location: [place] * 04/03/2025, CMP, Perform Date: 04/03/2025, Perform Location: [place] * 04/03/2025, Magnesium Panel, Perform Date: 04/03/2025, Perform Location: [place] * 04/03/2025, iSTAT creatinine panel, Perform Date: 04/03/2025, Perform Location: [place] Medications:? Imaging:? Services:?* 04/03/2025, Abdominal paracentesis (procedure), Instructions: Please schedule paracentesis, PerformDate: Start on:?04/03/2025?End by:?04/03/2025? (PRN) * 04/03/2025, Palliative care consult, Perform Date: 04/15/2025 * 04/03/2025, Pelvic examination (List separately in addition to code for primary procedure), PerformDate: 04/03/2025 * 04/03/2025, Port placement, Perform Date: 04/15/2025 * 04/03/2025, RTC GASOLINE FINISHER/PA and infusion, Perform Date: 04/15/2025 * 04/03/2025, RTC chemo teaching, Instructions: RTC - RN, Chemo teach, Perform Date: 04/15/2025 * 04/03/2025, Refer to customer success advocate, Instructions: Hi calorie low residue, Perform Date: 04/15/2025 Regimens: ?= Betty Lanier MD Copy to: ARTURO Rodriguez MD (Referring) ? Electronically signed by Betty Lanier MD 04/03/2025 11:20 CDT
--- OUTSIDE RECORDS SUMMARY | 2025-05-03 13:01 | XMS_ITS | CCD ---
Author Name Interface, H0Urrbreu lity Address [facility] [address] [place] [address] [facility] Address [address] [facility] [address] [place] [address] Care Team Providers Care Carpenter Apprentice Name Role Phone Yannick SANCHES, Betty Chand Unavailable Allergies and Adverse Reactions Care Plan Reason for Visit Encounters Functional Status Immunizations Diagnostic Results Medications Problems Procedures Social History Visits Vital Signs Notes Section
[2025-05-03 14:10] VITALS: TEMP 36.8
--- NOTE | 2025-05-03 15:43 | P.IMHP_ITS ---
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 Port in place. PleurX in place. -hospice initiated - unclear of date, now revoked for admission Status: Acute (4) Peritoneal carcinomatosis: Problem comment: -as above Status: Acute (5) Malignant ascites: Problem comment: -as above Status: Acute (6) Transitioned from hospice to acute care: Problem comment: Spoke with YONIS Sun, at [facility] who is taking care of her. He reports the patient who is of sound mind does not want to be hospitalized but family, including POA, have made the decision for her to be admitted for further cares Have revoked hospice cares in order for patient to be admitted. Hopeful that patient should be able to reenter following discharge Status: Acute Hospitalist- H&P: HPI History of Present Illness Date Seen: 05/03/25 Chief complaint: potassium is high Narrative: Meagan Rider is a 85 year old female past medical history significant for insulin-dependent diabetes mellitus, GERD, hypertension, ovarian cancer with widespread metastatic disease, peritoneal carcinomatosis, malignant ascites is admitted to the medical floor from the ED for further management hyponatremia. Patient is Greek-speaking only. Family is at bedside. Has been on hospice care with [facility], managed by YONIS Sun. Hospice cares have been revoked for acute care admission. Review of Systems Narrative: REVIEW OF SYSTEMS: Complete review of systems performed and negative unless otherwise stated in HPI or below. Medical Decision Making Medical Decision Making Has patient completed a Health Care Directive: No PFSH PFSH Medical History Insulin dependent diabetes mellitus type IA ?E10.9 - Type 1 diabetes mellitus without complications (ICD-10) Diabetes ?E11.9 - Type 2 diabetes mellitus without complications (ICD-10) Anemia ?D64.9 - Anemia, unspecified (ICD-10) GERD (gastroesophageal reflux disease) ?K21.9 - Gastro-esophageal reflux disease without esophagitis (ICD-10) Diabetic neuropathy ?E11.40 - Type 2 diabetes mellitus with diabetic neuropathy, unspecified (ICD-10) Hyperlipidemia ?E78.5 - Hyperlipidemia, unspecified (ICD-10) Chronic back pain ?M54.9 - Dorsalgia, unspecified (ICD-10) ?G89.29 - Other chronic pain (ICD-10) Poorly controlled type 2 diabetes mellitus ?E11.65 - Type 2 diabetes mellitus with hyperglycemia (ICD-10) Surgical History History of lumbar fusion ?Z98.1 - Arthrodesis status (ICD-10) History of partial hysterectomy ?Z90.711 - Acquired absence of uterus with remaining cervical stump (ICD-10) Social History Narrative: She is a nonsmoker. She drinks alcohol rarely. She has a many children and grandchildren who live in [place]. What is your current living situation?: I presently have a place to live Problems where you live: no known problems Problems where you live details: no known problems In the past 12 months, utilities in danger of being shut off: no In past 12 months, lack of transportation kept you from medical appts, meetings, work, or getting things needed for daily living: no In the past 12 mos, have been you worried that your food would run out before you had money to buy more?: never true In the past 12 mos, the food you bought just didn't last and you didn't have money to buy more?: never true Smoking Status: Current every day smoker What tobacco products do you use: cigarettes Do you use any of these nicotine containing products: None Second hand tobacco smoke exposure: Yes How often do you have a drink containing alcohol: never How often do you have six or more drinks on one occasion: Never AUDIT-C Alcohol total score: 0 Non-prescribed substance use: denies use Caffeine: Yes (Coffee) How often does anyone, including family, friends and others, physically hurt you : never How often does anyone, including family, friends and others, insult or talk down to you: never How often does anyone, including family, friends and others, threaten you with harm: never How often does anyone, including family, friends and others, scream or curse at you: never service: No Meds Home Medications and Allergies Home Medications ?Medication ?Instructions ?Recorded ?Confirmed ?Type hydroxyzine HCl 25 mg tablet 25 mg PO TID PRN itching #60 tabs 04/02/25 05/03/25 Rx pantoprazole 40 mg tablet,delayed 40 mg PO QDAY #90 ta bs 04/02/25 05/03/25 Rx release blood-glucose sensor (FreeStyle #6 ea 05/03/25 5 Rx Martine 3 Sensor device) insulin glargine 100 unit/mL (3 8 unit (0.08 mL) subcu t QAM #15 mL 05/03/25 05/03/25 Rx mL) subcutaneous pen (Lantus Solostar U-100 Insulin) Allergies Allergy/AdvReac Type Severity Reaction Status Date / Time No Known Drug Allergies Allergy Verified 05/03/25 12:21 Exam Narrative: Exam Narrative: PHYSICAL EXAM General: Pleasant, conversant, NAD HEENT: Normocephalic, atraumatic, sclera white, EOMI, oral mucosa moist Cardiovascular: RRR, S1S2. No pitting edema Pulmonary: CTA bilaterally without rhonchi, rales, expiratory wheezes. No dyspnea Abdominal: Soft, nondistended, NTTP Neurological: Alert, answering questions appropriately, cranial nerves intact, no focal findings Extremities: No gross joint deformity or swelling. AROMI. Neurovascularly intact Skin: Warm, dry. Const: Vital Signs, click to edit/add: Vital Signs - 24 hr 05/03/25 12:22 05/03/25 14:10 Temperature 97.2 F L 98.3 F Pulse Rate [Pulse Oximeter] 105 H Respiratory Rate 18 Blood Pressure [Ri ght Upper Arm] 128/76 Pulse Oximetry 95 Oxygen Delivery Me thod Room Air
[2025-05-03] MEDS: HEPARIN 500 UNIT/5 ML SYRINGE IVF (17:10)
== END 2025-05-03 17:37 | disposition home or self-care (01) ==
PROVIDERS: Emergency Provider Emergency Medicine Emergency Medical Services; PCP Family Medicine
DX: E87.1 Hypo-osmolality and hyponatremia (principal); C56.9 Malignant neoplasm of unspecified ovary
CPT/HCPCS: 80048; 85025; 99283; 99285; J1642; J7030